=== PATIENT | female | born 1955 | race Caucasian/White ===

== ENCOUNTER 2019-06-09 14:46 | Emergency (ER) | payer OTHER ==
[~2019-06-09] VITALS: Ht 157.5 cm; Wt 127.0 kg
[~2019-06-09 14:46] MED LIST: AMLODIPINE BESYL5 MG PO; BENAZEPRIL-HCT1 EAC2 PO; CITALOPRAM HBR20 MG PO; GLIPIZIDE ER10 MG PO; IBUPROFEN600 MG PO; LEVOTHYROXINE50 MCG PO; METFORMIN HCL500 M1 PO; PANTOPRAZOLE SO40 MG PO; PRAVASTATIN SOD20 MG PO
[2019-06-09] MEDS ORDERED: NORCO 5-325 TA1 EACH PO (16:23)
== END 2019-06-09 16:53 | disposition home or self-care (01) ==
LOC: ED 14:46
DX: S22.31XA Fracture of one rib, right side, initial encounter for closed fracture (principal); I10 Essential (primary) hypertension; E11.9 Type 2 diabetes mellitus without complications; E78.5 Hyperlipidemia, unspecified; F32.9 Major depressive disorder, single episode, unspecified; Z88.7 Allergy status to serum and vaccine; Z79.84 Long term (current) use of oral hypoglycemic drugs; Z79.899 Other long term (current) drug therapy; W22.8XXA Striking against or struck by other objects, initial encounter
CPT/HCPCS: 71101; 96372; 99284-25; J1885

== ENCOUNTER 2020-11-14 20:12 | Emergency (ER) | payer MEDICARE, OTHER ==
[~2020-11-14] VITALS: Ht 157.5 cm; Wt 136.1 kg
[~2020-11-14 20:12] MED LIST changes: +NORCO 5-325 TA1 EACH PO
--- NOTE | 2020-11-15 17:10 | EKG ---
[facility] [address] [facility] [place], [place] [address] Signed Normal sinus rhythm Cannot rule out Anterior infarct , age undetermined Abnormal ECG No previous ECGs available Confirmed by KONSTANTIN RUST DO ([id number]) on 11/15/2020 5:10:07 PM Electronically Signed By: KONSTANTIN RUST DO 11/15/20 1710 PATIENT NAME: MIGUEL ARCHER Electrocardiogram DATE OF : 55 PHYSICIAN: KONSTANTIN RUST DO REPORT #: [id number] REPORT IS CONFIDENTIAL AND NOT TO BE RELEASED WITHOUT AUTHORIZATION
== END 2020-11-14 21:53 | disposition home or self-care (01) ==
LOC: ED 20:12
DX: R06.02 Shortness of breath (principal); F32.9 Major depressive disorder, single episode, unspecified; I10 Essential (primary) hypertension; E78.5 Hyperlipidemia, unspecified; E11.9 Type 2 diabetes mellitus without complications; Z88.7 Allergy status to serum and vaccine
CPT/HCPCS: 71045; 80053; 83880; 84484; 85025; 93005; 93010; 99285-25

== ENCOUNTER 2021-09-13 21:20 | Inpatient (IN) | payer MEDICARE, OTHER ==
[~2021-09-13] VITALS: Ht 157.5 cm; Wt 131.9 kg
--- NOTE | 2021-09-14 01:28 | NUR ---
pt ARRIVES TO [place] VIA STRETCHER. [facility] TO TRANSFER pt TO HOSPITAL BED. FOUR NURSING STAFF AT BEDSIDE. MERIDA IN PLACE, DRAINING DILUTE URINE. pt DENIES SOB. LABORED BREATHING NOTED. 2L OXYGEN BY NC IN PLACE, SPO2 99% WITH CPOX TELE 4. pt DENIES PAIN. ASSISTED TO REPOSITION IN BED. IV SITES FLUSHED WNL, RIGHT FOREARM IV SL, LEFT HAND IV INFUSING MG SULFATE WNL. ASSESSMENT COMPLETE. LUIS CASAREZ AT BEDSIDE FOR ADMISSION. ICE WATER PROVIDED. pt DENIES ADDITIONAL NEEDS. ORIENATION TO ROOM AND CALL LIGHT PROVIDED.
--- NOTE | 2021-09-14 02:13 | NUR ---
pt SLEEPING, AWAKENS TO VOICE FOR IV REMDESIVIR AND PO MEDICATION ADMINISTRATION. IV SITE FLUSHED WNL. pt COUGHING. 2L OXYGEN REMAINS IN PLACE, SPO2 98%. WARM BLANKET PROVIDED ROOM COLD AFTER TEMPERATURE ADJUSTED. TEMPERATURE INCREASED AT THIS TIME. CALL LIGHT IN REACH. NO ADDITIONAL NEEDS. LIGHTS OFF IN ROOM.
--- NOTE | 2021-09-14 04:38 | NUR ---
CHECKED ON pt. RESTING IN BED WITH EYES CLOSED, BREATHING EQUAL AND UNLABORED AT THIS TIME. NO DISTRESS NOTED. SPO2 98% WITH 2L OXYGEN BY NC IN PLACE.
--- NOTE | 2021-09-14 06:33 | NUR ---
pt SLEEPING, AWAKENS TO VOICE WITH RN ENTERING ROOM. VSS. 2L OXYGEN BY NC IN PLACE. pt DENIES SOB. ENCOURAGED TO SIDE LIE. SCOURING TRAIN OPERATOR CHIEF IN ROOM TO DRAW LABS. SCHEDULED THYROID MEDICATION ADMINISTERED. ICE WATER REFILLED. MERIDA EMPTIED, CLEAR YELLOW URINE. CALL LIGHT IN REACH.
[2021-09-14] MEDS ORDERED: VENTOLIN HFA18 GM INH (07:22)
[2021-09-14] MEDS ORDERED: LEVOTHYROXINE50 MCG PO (07:23)
[2021-09-14] MEDS ORDERED: HYDROCHLOROTHIA50 MG PO (07:23)
--- NOTE | 2021-09-14 07:33 | NUR ---
SHIFT REPORT FROM NURSE MEDEL. PT ASLEEP IN BED, NO APPARENT SIGNS OF DISTRESS. SPO2 @ 98%. CALL LIGHT WITHIN REACH.
--- NOTE | 2021-09-14 07:58 | NUR ---
PATIENT IS SITTING UP IN BED. SHE DID NOT NEED ANYTHING AT THIS TIME. CALL LIGHT IN REACH.
--- NOTE | 2021-09-14 08:40 | NUR ---
PT LAYING IN BED. IN ROOM FOR MORNING ASSESSMENT AND MEDS. PT REPORTS FEELING EXHAUSTED STILL. SPO2 98- 100% ON 2L NC; WILL ATTEMPT TO TITRATE. BLE EDEMA 2-3+. UPPER EXTREMITY EDEMA NOTED; RA 2+, LA 1+. YEAST ODOR FROM UNDER PANUS AND GROIN FOLDS. MERIDA CARE PERFORMED. NO FURTHER CARE NEEDS AT THIS TIME. CALL LIGHT WITHIN REACH.
--- NOTE | 2021-09-14 10:45 | NUR ---
Spoke with Renu. She staes she lives in a 1 story home with 3 steps. Daughter and her boyfriend live with her and assist her. Pt states she has difficulty walking due to back and hip pain from arthritis. She uses a transfer board to transfer. Pt plans on dc to home when cleared for dc.
--- NOTE | 2021-09-14 11:56 | NUR ---
IN ROOM FOR EXTENDED TIME; PT GIVEN BED BATH, REPOSITIONED IN BED, FRESH GOWN AND CHUX PLACED ON BED. PT WAS ABLE TO STAND AT BEDSIDE WITH SBA WITH SOME VISIBLE SOB. DR. RUST CAME IN ROOM TO ASSESS PT AND PT WAS ABLE TO PERFORM FULL EXAM WITHOUT O2 AND SPO2 STAYED AT 96-97%. NC CURRENTLY OUT OF NOSE WITH CPOX LEFT ON TO MONITOR SPO2. ALLEVYN APPLIED TO EXCORIATED AREA ON INNER BUTTOCKS. PT IS TALKATIVE AND COOPERATIVE WITH CARE.
--- NOTE | 2021-09-14 12:50 | NUR ---
IN ROOM FOR NEWLY ORDERED MED ADMINISTRATION. PT WOULD LIKE TO SIT AT BEDSIDE. SPO2 94% ON RA. NEW STAT LOCK PLACED HIGHER ON LEG PT C/O PULLING ON MERIDA. LUNCH ARRIVED. CALL LIGHT WITHIN REACH.
--- NOTE | 2021-09-14 14:12 | EKG ---
[facility] [address] [facility] [place], [place] [address] Signed Sinus tachycardia Otherwise normal ECG When compared with ECG of 14-NOV-2020 21:14, No significant change was found Confirmed by KONSTANTIN RUST DO ([id number]) on 09/14/2021 2:12:02 PM Electronically Signed By: KONSTANTIN RUST DO 09/14/21 1412 PATIENT NAME: HUMBERTOPRABHAKARMIGUEL KAY Electrocardiogram DATE OF : 55 PHYSICIAN: KONSTANTIN RUST DO REPORT #: [id number] REPORT IS CONFIDENTIAL AND NOT TO BE RELEASED WITHOUT AUTHORIZATION
--- NOTE | 2021-09-14 14:23 | NUR ---
ON PRECAUTIONS WILL FOLLOW
[2021-09-14] MEDS ORDERED: FUROSEMIDE20 MG PO (14:35)
[2021-09-14] MEDS ORDERED: LISINOPRIL20 MG PO (14:37)
[2021-09-14] MEDS ORDERED: METFORMIN HCL500 MG PO (14:39)
--- NOTE | 2021-09-14 14:40 | NUR ---
MED REC COMPLETED BY PHARMACY
--- NOTE | 2021-09-14 15:41 | NUR ---
CPOX SHOWED SPO2 DROPPED TO 82% ON RA. CHECKED ON PT; PT WAS LAYING RIGHT LATERAL, RESPONDED IMMEDIATELY TO THIS RN VOICE. 1L NC REAPPLIED. PT RESPONDED AND SPO2 IS NOW 98-100%; PT LAYING ON HER BACK AT THIS TIME.
--- NOTE | 2021-09-14 17:45 | NUR ---
PT UP TO BEDSIDE WITH FEET DANGLING FOR DINNER. PT HAD A CBG OF 254 REQURIING 5UNITS SS INSULIN. PT REMAINS ON 1L NC OCCASIONAL DESAT TO 80S; PT BELIEVES THIS MAY BE D/T HER VIJAYA SHE WEARS A CPAP WHEN SHE SLEEPS AT HOME AND THE DESAT OCCURS WHEN SHE "DOZES OFF". PT DENIES PAIN, SOB IMPROVING ALTHOUGH DOES INCREASE WITH EXERTION. PT REMAINS ON CPOX. CALL LIGHT WITHIN REACH.
--- NOTE | 2021-09-14 19:35 | NUR ---
RECEIVED REPORT, PT IS AWAKE IN BED AND STATES SHE NEEDS TO BE CHANGED. WILL HAVE AIDS SOCIAL WORKER CHANGED BEDDING IN A FEW MINUTES. PT DENIES FURTHER NEEDS. CALL LIGHT IS CLOSE.
--- NOTE | 2021-09-14 20:00 | NUR ---
IN TO GET PT A LINEN CHANGE, PT INCONT OF BM, CATH CARE COMPLETE, RN NOW IN RM FOR MEDS, VITALS AND I&Os DONE, FRESH ICE WATER PROVIDED, NO FURTHER NEEDS, POT UP TO THE CHAIR FOR MEDS WITH RN
--- NOTE | 2021-09-14 20:40 | NUR ---
IN ROOM TO ASSESS PT AND ADMINISTER MEDICATIONS. PT DENIES PAIN, SHE DOES HAVE SOB WITH EXERTION.SHE IS ON 1LNC D/T SPOZ DROPPING INTO THE 80"S WHILE SLEEPING EARLIER TODAY. PT NORMALLY WEARS CPAP AT HOME. 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 APPLIED BARRIER CREAM AND ALLYVN TO COCCXY AREA. PT REPORTS EDEMA IS IMPROVING IN BILAT LE'S, THEY ARE STILL VERY TIGH. PT DENIES FURTHER NEEDS AT THIS TIME. CALL LIGHT IS CLOSE.
--- NOTE | 2021-09-14 23:03 | NUR ---
PT IS AWAKE SITTING AT THE EDGE OF THE BED, SHE DENIES NEEDS AT THIS TIME. CALL LIGHT IS CLOSE CPOX READS 94% ON 1LNC HR 89 IN SR.
--- NOTE | 2021-09-15 | NUR ---
ASSISTED PT WITH BSC NEEDS, PT BACK TO BED, ICE WATER AND MENU PROVIDED AT THIS TIME
--- NOTE | 2021-09-15 01:43 | NUR ---
IN ROOM TO CHANGE TELE BATTERY AND CHECK ON PT. SHE DENIES PAIN BUT STATES HER PERIAREA IS SORE. APPLIED BARRIER CREAM. PT ALSO FELT LIKE STATLOCK WAS PULLING ON MERIDA CATH. REMOVED STATLOCK AND REPLACED STATLOCK IN DIFFERENT POSITION TO AVOID PULLING. PT DENIES SOB, EDUCATED PT ON PNA AND COUGHING DEEP BREATHING AND PRONING. PT DENIES FURTHER NEEDS. CALL LIGHT IS CLOSE, PT REMAINS ON CPOX AT 100% AT THIS TIME ON 1LNC WHILE AWAKE.
--- NOTE | 2021-09-15 03:10 | NUR ---
PT IS RESTING WITH EYES CLOSED, RR IS EVEN AND UNLABORED. CPOX READS 98% ON 1LNC. CALL LIGHT IS CLOSE.
--- NOTE | 2021-09-15 04:48 | NUR ---
PT IS RESTING WITH EYES CLOSED, RR IS EVEN AND UNLABORED. CPOX READ 99% ON 1LNC, CALL LIGHT IS CLOSE.
--- NOTE | 2021-09-15 06:32 | NUR ---
IN ROOM TO ADMINISTER THYROID MEDICATION. PT DENIES SOB AT THIS TIME. JUST BEFORE ENTERING ROOM CPOX SHOWED O2 BRIEFLY DROP TO 81%. IT MAY NOT HAVE BEEN A GOOD READING. PT IS SITTING AT EDGE OF BED. PT REPORTS FEELING SOB A FEW TIMES WHEN ROLLING OVER TO SIDE DURING THE NIGHT. PT DENIES NEEDS AT THIS TIME. CALL LIGHT IS CLOSE.
--- NOTE | 2021-09-15 07:10 | NUR ---
REPORT RECIEVED BY MANAGEMENT DEVELOPER RN, PT IN BED RESTING CPOC #4 ON AND FUNCTIONING . ON 1L NC NO NEEDS AT THE MOMENT
--- NOTE | 2021-09-15 08:40 | NUR ---
RN IN ROOM TO DO MORNING ASSESSMENT AND MEDICATIONS, PT SITTING UP IN BED DENIES PAIN, DENIES SOB, ON 1L NC, MERIDA IN PLACE AND INTACT, QUESTIONS ANSWERED
--- NOTE | 2021-09-15 10:46 | NUR ---
RN IN ROOM TO REMOVE MERIDA PT TOLERATED WELL, PT REQUESTING RN TO RE APPLY BARRIER CREAM, ÓSCAR AREA CLEANED AND BARRIER CLEAN APPLIED NO OTHER NEEDS AT THE MOMENT
--- NOTE | 2021-09-15 11:00 | NUR ---
Spoke with pt. She cont. on 02, has difficulty walking, and has a finley in place. Asked if she will need clothes to go home and I let her know her family could drop them and her CPAP off if needed. I let the pt know if fammily can't bring clothing we will get scrubs. Spoke with Dr. Fowler and she states pt does not need CPAP at this time and she will more than likely dc tomorrow. I received a text from pts daughter Lynn, who has worked with me at the hospital. She let me know she also has covid and cannot bring clothing or cpap. UPdated I spoke with the , pt does not need CPAP, we can get her scrubs to go home in.
--- NOTE | 2021-09-15 12:25 | NUR ---
noon blood glucose 197 3 units of insulin provided. sitting up at the edge of the bed eating denies any other needs
--- NOTE | 2021-09-15 13:12 | NUR ---
PT STILL UNDER PRECAUTIONS, WILL FOLLOW NEEDED
--- NOTE | 2021-09-15 15:14 | NUR ---
RN IN ROOM ROUDING ON PT, PT RESTING IN BED , ABLE TO VOID AFTER CATHETER REMOVAL, DENIES ANY NEEDS AT THE MOMENT
--- NOTE | 2021-09-15 17:14 | NUR ---
PT BLOOD GLUCOSE 137, NO INSULIN GIVEN, DINNER TRAY PROVIDED
--- NOTE | 2021-09-15 18:15 | NUR ---
RN IN ROOM TO HELP PT BACK INTO BED FROM BSC, NEW MEPILEX APPLIED TO COCCXY, BARRIER CREAM APPLIED TO ÓSCAR AREA.
--- NOTE | 2021-09-15 19:27 | NUR ---
SHIFT REPORT RECEIVED FROM GOKUL SMITH. PT RESTING IN BED, ON PHONE. SPO2 95% ON 1L NC. NO NEEDS AT THIS TIME. CALL LIGHT IN REACH.
--- NOTE | 2021-09-15 19:56 | NUR ---
PT CALLS FOR ÓSCAR CARE AND ASSIST BACK TO BED, PROVIDED. ASSESSMENT COMPLETED. GCS 15, A&O X4. LUNGS DIM IN RIGHT LOWER AND MID LOBE, CLEAR IN ALL OTHER LOBES. ABD SOFT, NONTENDER, BOWEL TONES ACTIVE, OBESE. PT HAS GENERALIZED EDEMA IN ALL EXRETMITIES AND STATES SHE HAS EDEMA IN ABD AND SIDES. IV WNL, FLUSHED WELL. ALLEVYN ON COCCYX. NC @ 1L, SPO2 96. PT HAS SOB WITH ACTIVITY BUT RECOVERS QUICKLY. NO OTHER NEEDS AT THIS TIME. CALL LIGHT IN REACH.
--- NOTE | 2021-09-15 20:38 | NUR ---
VS AND I&O COMPLETED. SCHEDULED MEDS PROVIDED. ICE WATER PROVIDED. NO OTHER NEEDS. CALL LIGHTIN REACH.
--- NOTE | 2021-09-15 21:30 | NUR ---
IN TO ASSIST PT OFF THE BSC, WARM BLANKET PROVIDED, NO FURTHER NEEDS
--- NOTE | 2021-09-15 23:21 | NUR ---
PT ASSISTED OFF THE COMMADE, BACK TO BED
--- NOTE | 2021-09-16 00:56 | NUR ---
IN TO ASSIST PT WITH ÓSCAR CARE AFTER BCS, BACK TO BED, NO FURTHER NEEDS
--- NOTE | 2021-09-16 02:04 | NUR ---
PT RESTING IN BED. SPO2 100% ON 1L NC. CALL LIGHT IN REACH.
--- NOTE | 2021-09-16 02:35 | NUR ---
PT ASSISTED TO BED FROM BSC. SPO2 100% ON 1L NC. O2 TITRATED TO RA, SPO2 94%. ASSESSMENT COMPLETED. LUNGS CLEAR IN LEFT LOBES AND RIGHT UPPER LOBE, DIM IN RIGHT MID AND LOWER LOBES. GENREALIZED EDEMA IN BOTH UPPER EXTREMITIES AND ABD, 2+ BLE. ABRASION NOTED TO OUTER LEFT FA, BILINGUAL ADMINISTRATIVE ASSISTANT. IVs WNL. NO OTHER NEEDS. CALL LIGHT IN REACH.
--- NOTE | 2021-09-16 03:24 | NUR ---
IN TO ASSIST PT WITH ÓSCAR CARE AFTER USING THE BSC, NO FURTHER NEEDS
--- NOTE | 2021-09-16 04:30 | NUR ---
IN TO ASSIST PT WITH ÓSCAR CARE, VITALS DONE, NO FURTHER NEEDS
--- NOTE | 2021-09-16 05:16 | NUR ---
SCHEDULED MED PROVIDED. PT UP TO BSC AND BACK TO BED. NO OTHER NEEDS. CALL LIGHT IN REACH.
--- NOTE | 2021-09-16 06:20 | NUR ---
IN TO GET PT OFF THE BSC
--- NOTE | 2021-09-16 07:35 | NUR ---
report recieved from site auditor RN pt sleeping in bed currently on room air cpoc 96% call light within reach no needs at the moment
--- NOTE | 2021-09-16 08:40 | NUR ---
RN IN ROOM TO DO MORNING MEDS AND ASSESSMENT. DENIES ANY NEEDS AT THE MOMENT ON ROOM AIR DENIES SOB OR PAIN.
[2021-09-16] MEDS ORDERED: LOSARTAN POTASS50 MG PO (09:24)
[2021-09-16] MEDS ORDERED: POTASSIUM CHLO10 MEQ PO (09:27)
[2021-09-16] MEDS ORDERED: FUROSEMIDE20 MG PO (09:28)
== END 2021-09-16 13:18 | disposition home or self-care (01) | DRG 177 ==
LOC: ED 21:20 → MS 21:22
PROVIDERS: ADMIT Student in an Organized Health Care Education/Training Program; ATTEND Student in an Organized Health Care Education/Training Program
PROC: 8E0ZXY6 Isolation (ICD-10-PCS; principal; 2021-09-14)
PROC: XW033E5 Introduction of Remdesivir Anti-infective into Peripheral Vein, Percutaneous Approach, New Technology Group 5 (ICD-10-PCS; 2021-09-14)
PROC: 3E0DX3Z Introduction of Anti-inflammatory into Mouth and Pharynx, External Approach (ICD-10-PCS; 2021-09-14)
DX: U07.1 COVID-19 (principal); J12.82 Pneumonia due to coronavirus disease 2019; J96.01 Acute respiratory failure with hypoxia; I50.31 Acute diastolic (congestive) heart failure; I11.0 Hypertensive heart disease with heart failure; F32.A Depression, unspecified; E78.5 Hyperlipidemia, unspecified; E11.9 Type 2 diabetes mellitus without complications; Z98.890 Other specified postprocedural states; Z90.710 Acquired absence of both cervix and uterus; D64.9 Anemia, unspecified; E03.9 Hypothyroidism, unspecified; Z79.899 Other long term (current) drug therapy
CPT/HCPCS: 71045; 80048; 80076; 81001; 83605; 83735; 83880; 84484; 85025; 87040; 93005; 93010; 94760; 94762; 96372; A9270; C9803; G0378; J0456; J0696; J1650; J1815; J1940; J3475; J7050; J7060; U0003

== ENCOUNTER 2022-10-01 10:01 | Inpatient (IN) | payer MEDICARE, OTHER ==
[~2022-10-01] VITALS: Ht 157.5 cm; Wt 122.6 kg
[~2022-10-01 10:01] MED LIST changes: +FUROSEMIDE20 MG PO; +HYDROCHLOROTHIA50 MG PO; +LISINOPRIL20 MG PO; +LOSARTAN POTASS50 MG PO; +METFORMIN HCL500 MG PO; +POTASSIUM CHLO10 MEQ PO; +VENTOLIN HFA18 GM INH
[2022-10-01] MEDS ORDERED: ALLOPURINOL100 MG PO (10:59)
[2022-10-01] MEDS ORDERED: VITAMIN D350 MC3 PO (11:00)
[2022-10-01] MEDS ORDERED: VITAMIN B122500 MCG PO (11:01)
[2022-10-01] MEDS ORDERED: LEVOTHYROXINE125 MCG PO (11:02)
[2022-10-01] MEDS ORDERED: CITRACAL + D E1 EACH PO (11:03)
[2022-10-01] MEDS ORDERED: MAGNESIUM250 M1 PO (11:28)
[2022-10-01] MEDS ORDERED: HYDROCHLOROTHIA25 MG PO (12:47)
[2022-10-01] MEDS ORDERED: CRESTOR10 MG PO (12:50)
[2022-10-01] MEDS ORDERED: TORSEMIDE20 MG PO (12:50)
[2022-10-01] MEDS ORDERED: FAMOTIDINE10 MG PO (12:51)
[2022-10-01] MEDS ORDERED: ACTOS15 MG PO (12:51)
--- NOTE | 2022-10-01 13:14 | NUR ---
66 YEAR OLD FEMALE PATEINT ADMITTED TO CCU UNDER DR. CARTWRIGHT WITH DX OF HYPONATREMIA. ADMITTING NA 119. PATIENT HAS BEEN HAVING INCREASED S/S OF BRAIN FEELING FOGGY OVER THE PAST WEEK HAS HX OF CIRRHOSIS. HAS CT OF LIVER ON Aug. IS AWAKE AND ALERT ON ADMIT. ADMISSION PROCESS STARTED.
[2022-10-01] MEDS ORDERED: CELECOXIB100 MG PO (13:43)
[2022-10-01] MEDS ORDERED: LOSARTAN POTASS50 MG PO (13:45)
[2022-10-01] MEDS ORDERED: POTASSIUM CHLO10 ME2 PO (13:45)
[2022-10-01] MEDS ORDERED: HYDROCHLOROTHIA50 MG PO (13:46)
[2022-10-01] MEDS ORDERED: METFORMIN HCL750 MG PO (13:46)
--- NOTE | 2022-10-01 16:00 | EKG ---
[facility] [address] [facility] [place] [address] Signed Sinus rhythm with 1st degree AV block Nonspecific ST abnormality Prolonged QT Abnormal ECG When compared with ECG of 13-SEP-2021 21:32, WA interval has increased Vent. rate has decreased BY 42 BPM QRS duration has increased Confirmed by KHADAR CARTWRIGHT MD ([id number]) on 10/01/2022 3:59:52 PM Electronically Signed By: KHADAR CARTWRIGHT MD 10/01/22 1600 PATIENT NAME: MIGUEL ARCHER Electrocardiogram DATE OF : 55 PHYSICIAN: KHADAR CARTWRIGHT MD REPORT #: [id number] REPORT IS CONFIDENTIAL AND NOT TO BE RELEASED WITHOUT AUTHORIZATION
--- NOTE | 2022-10-01 16:00 | EKG ---
[facility] [address] [facility] [place] [address] Signed Normal sinus rhythm Nonspecific ST abnormality Prolonged QT Abnormal ECG When compared with ECG of 01-OCT-2022 10:34, (Unconfirmed) No significant change was found Confirmed by KHADAR CARTWRIGHT MD ([id number]) on 10/01/2022 3:59:58 PM Electronically Signed By: KHADAR CARTWRIGHT MD 10/01/22 1600 PATIENT NAME: SUZIMIGUEL ANDREW Electrocardiogram DATE OF : 55 PHYSICIAN: KHADAR CARTWRIGHT MD REPORT #: [id number] REPORT IS CONFIDENTIAL AND NOT TO BE RELEASED WITHOUT AUTHORIZATION
--- NOTE | 2022-10-01 16:09 | NUR ---
PATIENT LYING IN BED. VITALS COMPLETED. CALL LIGHT WITHIN REACH.
--- NOTE | 2022-10-01 16:32 | NUR ---
MED REC COMPLETE
--- NOTE | 2022-10-01 16:55 | NUR ---
Patient up tp commode and onto couch with SBA. Voided 150cc, call light withinr reach.
--- NOTE | 2022-10-01 18:00 | NUR ---
TOOK DINNER FAIR. STATES SHE IS FEELING A LITTLE BETTER. BRAIN NOT FOGGY. LABS DRAWN.
--- NOTE | 2022-10-01 18:30 | NUR ---
DR. CARTWRIGHT UP DATED ON LABS.
--- NOTE | 2022-10-01 19:04 | NUR ---
IVF CHANGED TO NS W/O KCL AT 75 ML/HR. PATIENT IS RESTING IN BED NOW. PATIENT IS AWARE SHE WILL HAVE LAB DRAW AT MIDNIGHT. REPORT TO NEXT SHIFT.
--- NOTE | 2022-10-01 19:45 | NUR ---
PT ASSESSED, FOUND TO BE RESTING COMFORTABLY IN BED. PT IS A&O X 4 WITH A GCS OF 15. PT WITH NO COMPALINTS AT THIS TIME. SAFTEY CHECK PERFORMED, MONITOR ALARM LIMITS SET AND CALL LIGHT PLACED AT BEDSIDE. DR. CARTWRIGHT CONSULTED REGARDING CONTINUED HYPONATREMIA AND CONCERN FOR UTI EVIDENCE BY UA. NO NEW ORDERS OBTAINED.
--- NOTE | 2022-10-02 00:48 | NUR ---
DR. CARTWRIGHT CALLED WITH UPDATED NA LEVEL OF 121. NO NEW ORDERS OBTAINED.
--- NOTE | 2022-10-02 07:30 | NUR ---
REPORT RECIEVED. PATIENT IS SLEEPING ON CPAP. IVF INFUSING AT 75 ML/HR. .
--- NOTE | 2022-10-02 08:12 | NUR ---
ASSESSMENT COMPLETE. UP TO BR TO VOID THEN TO COUCH FOR BREAKFAST.
--- NOTE | 2022-10-02 11:20 | NUR ---
DR. CARTWRIGHT HERE TO SEE PATIENT. PATIENT DENIES NEED FOR PAIN MEDICATION.
--- NOTE | 2022-10-02 11:28 | NUR ---
INTO SEE PATIENT DR. CARTWRIGHT AND MARSHAL RN AT BEDSIDE. PATIENT STATES HE LIVE AT HOME WITH HER DAUGHTER CARLOS ALBERTO. CARLOS ALBERTO WORKS REMOTELY FROM HOME AND WILL BE AVAILABLE TO ASSIST THE PATIENT AT DISCHARGE. THE PATIENT LIVES IN A 1 STORY HOME WITH 3 STEPS IN. PATIENT STATES SHE HAS A WALKER THAT SHE USES FOR LONG DISTANCES SHE TIRES EASILY. PATIENT ALSO WEARS A CPAP. NO DISCHARGE NEEDS THAT THE PATIENT IS AWARE OF AT THIS TIME. SHE HAS RECENTLY ESTABLISHED WITH DR. SALAS WHEN HER PREVIOUS PROVIDER LEFT THE AREA. DEMOGRAPHIC INFORMATION CONFIRMED. WILL CONTINUE TO CHECK IN WITH PATIENT DURING HER VISIT.
--- NOTE | 2022-10-02 12:00 | NUR ---
ASSESSMENT DONE. STATES SHE IS FEEING BETTER. DENIES PAIN. 3% NS INFUSING. PATIENT IS SITTING UP ON COUGH FOR LUNCH. HUMALOG INSULIN 5 UNITS SQ GIVEN FOR ACCUCHECK OF 257.
--- NOTE | 2022-10-02 14:00 | NUR ---
CONTINUES TO SIT UP ON COUCH. DENIES NEED FOR PAIN MEDICATION. 3% NS INFUSING.
--- NOTE | 2022-10-02 15:00 | NUR ---
NAPPING IN BED WITH CPAP ON.
--- NOTE | 2022-10-02 18:14 | NUR ---
SITTING UP TO EAT DINNER. BLOOD DRAWN.
--- NOTE | 2022-10-02 18:40 | NUR ---
DR. CARTWRIGHT UPDATED ON LABS, ORDERS RECIEVED. IVF DECREASED TO 20 ML/HR.
--- NOTE | 2022-10-02 19:32 | NUR ---
DAUGHTER IS IN THE ROOM VISITING WITH PATIENT. REPORT TO NEXT SHIFT.
--- NOTE | 2022-10-02 20:00 | NUR ---
PT ASSESSED, FOUND TO BE SITTING ON COUCH AWAKE AND ORIENTED WITH A GCS OF 15. DAUGHTER PRESENT, PT DOES NOT APPEAR TO BE IN ANY DISTRESS, AND DENIES ANY PAIN AT THIS TIME. PT MOVES ALL FOUR EXTREMITIES, AND FOLLOWS COMMANDS APPROPRIATELY. SAFETY CHECK PERFORMED, ALARM LIMITS SET AND NURSE CALL LIGHT WITH PATIENT. PT IS NOW ON 3% NA GTT. SERIAL SODIUM LEVELS DISCONTINUED. URINE NOTED TO HAVE + NITRITE, WBC AND BACTERIA PRESENT. DR. CARTWRIGHT CONSULTED REGARDING CONCERN FOR ODS AND NEED FOR SERIAL SODIUM LEVEL. WELL, DISCUSSED CONCERN FOR POSSIBLE UTI AND REQUEST TO STRAIGHT CATH PATIENT FOR ANOTHER UA. DR. CARTWRIGHT INFORMS THAT SERIAL SODIUM LABS AND ANOTHER UA "ARE NOT NECCESSARY AT THIS TIME." NO FURTHER ORDERS OBTAINED
--- NOTE | 2022-10-03 07:18 | NUR ---
PT REMAINS ALERT AND ORIENTED X 4 WITH A GCS OF 15. PT HAS BEEN IN A NSR, NORMOTENSIVE AND A-FEBRILE. PT MOVES ALL FOUR EXTREMITIES WITH PURPOSE, CMS INTACT X 4. PT HAS BEEN IN A NSR, NORMOTENSIVE AND A-FEBRILE THROUGHOUT THE SHIFT. SODIUM 3% OFF AT 0500 PER MD ORDERS. NA NOTED AT 126. DR. CARTWRIGHT CONSULTED AND ADVISED WILL CONTINUE TO MONITOR PATIENT AT THIS TIME. NO FURTHER ACTIONS NOTED.
--- NOTE | 2022-10-03 07:30 | NUR ---
REPORT RECIEVED. PATEINT IS SITTING UP ON COUCH. NO DISTRESS NOTED.
--- NOTE | 2022-10-03 08:30 | NUR ---
TOOK BREAKFAST FAIR. DENIES PAIN. ASSESSMENT DONE. ROUTINE PO MEDICATIONS GIVEN. CONTINUES TO SIT ON COUGH. TALKATIVE AND IS IN GOOD SPIRITS.
--- NOTE | 2022-10-03 12:00 | NUR ---
PATIENT SITTING UP ON COUCH FOR BREAKFAST. WILL AMBULATE TO [facility] FOR SHOWER THIS AFTERNOON. CALL LIGHT IN EASY REACH
--- NOTE | 2022-10-03 12:00 | NUR ---
ASSESSMENT UNCHANGED. SITTING UP ON COUCH EATING LUNCH. IS W/O C/O. WILL BE TRANSFERRED TO MED-SURG THIS AFTERNOON.
--- NOTE | 2022-10-03 12:33 | NUR ---
PT SITTING ON COUCH, LEANING ON TABLE WRAPPED IN BLANKETS. PT IS PLEASANT, HAD GOOD VISIT. PT STATED SHE HAS EXPERIENCED THIS BEFORE. PT IS ANXIOUS TO VISIT WITH DR CARTWRIGHT AND DEVELOP POC. PT STATED SHE IS FEELING BETTER, GAVE G.POST, BLESSING AND WILL FOLLOW
--- NOTE | 2022-10-03 13:00 | NUR ---
NS 3% HUNG AT 40 ML/HR. PATEINT WILL BE TRANSFERRED TO MED-SURG. PATIENT DENIES PAIN.
--- NOTE | 2022-10-03 13:10 | NUR ---
spoke with Renu. She states she lives in a house in [place]. She has hand rails. NO issues getting in or out of the home. She lives alone. She uses a CPAP and is changing to a BIpap. She has a shower chair. Pt would like a walker with a seat. States she is having neuropathy in her feet. She has pins and needles which is progressively getting worse. Let her know I will update Dr. Lucia. She also requests of potassium Chloride is ordered they are 2-10 mg tables as she cannot swallow the large 20 mg tabs. I asked if she breaks in half and she states she cannot swallow. Dr. Lucia updated.
--- NOTE | 2022-10-03 13:45 | NUR ---
REPORT TO MED-SURG.
--- NOTE | 2022-10-03 14:20 | NUR ---
TO MED-SURG VIA CHAIR.
--- NOTE | 2022-10-03 14:41 | NUR ---
REPORT RECEIVED FROM CCU RN. PT TRANSFERS TO TO MED-SURG SITTING UP ON COUCH DOING A PUZZLE. ORIENTED TO ROOM AND ROUTINE DENIES [place]. PT TO SHOWER AT THIS TIME STAFF SBA
--- NOTE | 2022-10-03 14:45 | NUR ---
THIS CITY CARRIER IN TO ASSIST PATIENT WITH SHOWER. PATIENT IS VERY RED AND PAINFUL IN GROIN AND PANNUS AREA. RN AWARE. PATIENT NOW SITTING ON COUCH IN ROOM, WARM BLANKET PROVIDED. CALL LIGHT IN EASY REACH.
--- NOTE | 2022-10-03 16:13 | NUR ---
PT MEETING WITH SUPPLY CHAIN SPECIALIST AT THIS TIME.
--- NOTE | 2022-10-03 17:42 | NUR ---
PT REMAINS SITTING ON THE COUCH THIS EVENING. TOLERATES 100% OF HER MEAL DENIES NEED OF ANYTHING FURTHER. ENCOURAGED TO CALL FOR SBA TO MOVE AROUND THE ROOM.
--- NOTE | 2022-10-03 18:44 | NUR ---
PT USED CALL LIGHT FOR ASSISTANCE IN ÓSCAR CARE AFTER THE RESTROOM. I ASSISTED PT IN CLEANING, DOCUMENTED OUTPUT. SHE ASKED TO GO FOR A WALK IN THE [place]. SHE WAS A STBY, STEADY ON HER FEET. SHE AMBULATED X1 DOWN THE UNIT [place]. SHE BECAME WINDED BY THE END OF THE WALK SO SHE SAT ON THE BENCH IN HER ROOM. PT IS COMFORTABLE, TABLE/BELONGINGS/CALL LIGHT IN REACH.
--- NOTE | 2022-10-03 19:00 | NUR ---
BEDSIDE HANDOFF REPORT RECEIVED FROM DAY SHIFT RN. PT SITTING ON COUCH. PT DENIES NEEDS AT THIS TIME.
--- NOTE | 2022-10-03 19:51 | NUR ---
CALL LIGHT ANSWERED. pt SITTING ON COUCH, REQUESTED TEMPERATURE TURNED UP IN ROOM. THERMOSTAT ADJUSTED, WARM BLANKETS PROVIDED. DENIES ASSISTANCE TO BED. IVF INFUSING WNL. CALL LIGHT IN REACH.
--- NOTE | 2022-10-03 20:30 | NUR ---
PT SITTING ON COUCH, TALKING TO DAUGHTER. PT ON ROOM AIR, LUNG SOUNDS CLEAR, DENIES SOB. DENIES PAIN. BOWEL TONES ACTIVE, DENIES NAUSEA. PT WITH CHRONIC NEUROPATHY IN FEET AND FINGERTIPS, BLE WITH GENERALIZED NON PITTING EDEMA, PULSES FAINT, CAP REFILL 1 SECOND. IV FLUIDS STOPPPED PER ORDER. PT DENIES OTHER NEEDS AT THIS TIME.
--- NOTE | 2022-10-03 21:45 | NUR ---
LAB OBTAINED BY LUIS WHITE. PT BLOOD GLUCOSE 256, GIVEN 5 UNITS SS INSULIN. PT ASKING ABOUT INSULIN, PT STATES SHE HAS NEVER HAD TO TAKE INSULIN AT HOME. PT EDUCATED ON INSULIN, TYPES OF INSULIN AND ADMINISTRATION.
--- NOTE | 2022-10-03 22:04 | NUR ---
DR. CARTWRIGHT RETURNED CALL, CORRECTED SODIUM 134, ORDER FOR NO FURTHER IV THERAPY, PT LIKELY TO DC HOME TOMORROW. PT UPDATED ON PLAN OF CARE FOR TONIGHT AND TOMORROW. PT DENIES OTHER NEEDS AT THIS TIME.
--- NOTE | 2022-10-03 22:52 | NUR ---
ANSWERED CALL LIGHT. PATIENT MOVED FROM COUCH TO BED INDEPENDENTLY. WARM BLANKET PROVIDED. HOME CPAP ON. NO OTHER NEEDS AT THIS TIME.
--- NOTE | 2022-10-04 06:03 | NUR ---
MORNING ASSESSMENT COMPLETED, NO ACUTE CHANGES. PT GIVEN LEVOTHYROXINE PER EMAR. PT AMBULATED TO BATHROOM AND VOIDED. PT DENIES OTHER NEEDS AT THIS TIME.
--- NOTE | 2022-10-04 07:15 | NUR ---
PT RESTING IN BED. PT PROVIDED WARM WASH CLOTH AND ICE WATER. PT STATED SHE WILL INDEP GET UP TO COUCH. NO FURTHER NEEDS. CALL LIGHT WITHIN REACH
--- NOTE | 2022-10-04 07:30 | NUR ---
RECIEVED SHIFT REPORT. PT RESTING IN BED, AWAKE. CALL LIGHT WITHIN REACH. DENIES FURTHER NEEDS
--- NOTE | 2022-10-04 09:25 | NUR ---
PT ON COUCH. VITALS AND IS AND OS COMPLETE. PT DECLINED RESTROOM NEEDS SHE GOES INDEP. NO NEEDS AT THIS TIME. CALL LIGHT WITHIN REACH
--- NOTE | 2022-10-04 09:47 | NUR ---
MORNING ASSESSMENT COMPLETE. PT DENIES PAIN. CALL LIGHT WITHIN REACH. DENIES FURTHER NEEDS.
--- NOTE | 2022-10-04 09:59 | NUR ---
PATIENT HOPING TO GO HOME TODAY.PATIENT IS REQUESTING ADVANCE DIRECTIVE AND POLST FORMS. HAND-OUTS GIVEN TO PATIENT. PATIENT WILL REVIEW HAND-OUTS. PATIENT IS ALSO REQUESTING A WALKER WITH A SEAT. WAS UPDATED BY [facility] ABOUT THIS REQUEST.
[2022-10-04] MEDS ORDERED: GLIPIZIDE XL2.5 MG PO (10:09)
--- NOTE | 2022-10-04 11:08 | NUR ---
RX SENT TO [facility] FOR A 4 WHEELED WALKER WITH A SEAT.[facility] CAN BRING THE WALKER TO [facility] TOMORROW. PATIENT UPDATED ON PLAN.
--- NOTE | 2022-10-04 11:17 | NUR ---
PATIENT SITTING ON COUCH DOING CROSSWORD PUZZLES. I BROUGHT HER A SAMPLE DIABETES LOW SODIUM MENU FOR HOME. I ALSO BROUGHT HER A NON-STARCHY VEGGIE LIST AND A PICTURE OF A DIABETES-FRIENDLY PLATE FOR HER TO TAKE HOME. SHE STATES "THANK YOU FOR ALL OF THIS INFO. IF I HAVE ANY QUESTIONS CAN ME OR MY DAUGHTER CALL YOU?" I SAID YES, CALL ANYTIME. MY CARD IS IN THE FOLDER. SHE EXPECTS TO GO HOME TODAY.
--- NOTE | 2022-10-04 12:45 | NUR ---
PT ALERT, ORIENTED SITTING ON COUCH USING THE PHONE. PT IS PREPARING TO DC TODAY. SAID SHE IS FEELING WELL, THANKED ME FOR CHECKING. GAVE BLESSING.
== END 2022-10-04 11:58 | disposition home or self-care (01) | DRG 641 ==
LOC: ED 10:01 → CCU 12:29 → MS 10-03 14:37
PROVIDERS: ADMIT Internal Medicine; ATTEND Internal Medicine
DX: E87.1 Hypo-osmolality and hyponatremia (principal); D61.818 Other pancytopenia; I13.0 Hypertensive heart and chronic kidney disease with heart failure and stage 1 through stage 4 chronic kidney disease, or unspecified chronic kidney disease; Z68.43 Body mass index [BMI] 50.0-59.9, adult; Z20.822 Contact with and (suspected) exposure to COVID-19; T50.1X5A Adverse effect of loop [high-ceiling] diuretics, initial encounter; T50.2X5A Adverse effect of carbonic-anhydrase inhibitors, benzothiadiazides and other diuretics, initial encounter; E87.6 Hypokalemia; E11.21 Type 2 diabetes mellitus with diabetic nephropathy; E11.65 Type 2 diabetes mellitus with hyperglycemia; I35.0 Nonrheumatic aortic (valve) stenosis; E11.22 Type 2 diabetes mellitus with diabetic chronic kidney disease; N18.32 Chronic kidney disease, stage 3b; E03.9 Hypothyroidism, unspecified; F32.A Depression, unspecified; E78.5 Hyperlipidemia, unspecified; R77.8 Other specified abnormalities of plasma proteins; I50.9 Heart failure, unspecified; H35.30 Unspecified macular degeneration; E79.0 Hyperuricemia without signs of inflammatory arthritis and tophaceous disease; K74.60 Unspecified cirrhosis of liver; D73.1 Hypersplenism; M15.9 Polyosteoarthritis, unspecified; E66.01 Morbid (severe) obesity due to excess calories; E86.1 Hypovolemia; Z90.710 Acquired absence of both cervix and uterus; Z98.891 History of uterine scar from previous surgery; Z88.7 Allergy status to serum and vaccine; Z79.890 Hormone replacement therapy; Z79.899 Other long term (current) drug therapy
CPT/HCPCS: 36415; 71045; 80048; 80053; 81001; 82140; 83036; 83690; 83735; 83880; 83930; 83935; 84300; 84484; 84550; 85025; 85060; 87088; 93005; 93010; A9270; C9803; J1815; J3480; J7030; J7131; U0003

== ENCOUNTER 2023-04-05 11:36 | Emergency (ER) | payer MEDICARE, OTHER ==
[~2023-04-05] VITALS: Ht 157.5 cm; Wt 136.4 kg
--- OUTSIDE RECORDS SUMMARY | ~2023-04-05 | XMS | Continuity of Care Document ---
Demographics + + + | Address | [address] | | | [place] [address] | + + + | Preferred Language | Unknown | + + + | Marital Status | Never | + + + | Sabianist Affiliation | Unknown | + + + | Race | White | + + + | Ethnic Group | Not or | + + + Author + + + | Author | [facility] | + + + | Organization | [facility] | + + + | Address | [address] | | | [place] [address] | + + + | Phone | | + + + Care Team Providers + + + + | Care General Cleaner Name | Role | Phone | + + + + Unavailable | Unavailable | + + + + Unavailable | Unavailable | + + + + Unavailable | Unavailable | + + + + Unavailable | Unavailable | + + + + Unavailable | Unavailable | + + + + Allergies and Intolerances + + + + + + | date | description | facility | reaction | severity | + + + + + + | (no date) | Tetanus | [facility] | (no reaction) | (no severity) | | | Vaccines and | | | | | | Toxoid | | | | + + + + + + Encounters No information. Functional Status No information. Immunizations No information. Medications + + + + | date | description | facility | + + + + | 2022-10-10 00:00 | CYANOCOBALAMIN (VITAMIN | [facility] | | | B-12) | | + + + + | 2023-04-03 00:00 | CYANOCOBALAMIN (VITAMIN | [facility] | | | B-12) | | + + + + | 2022-10-10 00:00 | ALLOPURINOL | [facility] | + + + + | 2023-04-03 00:00 | ALLOPURINOL | [facility] | + + + + | 2022-07-11 00:00 | AMLODIPINE BESYLATE | [facility] | + + + + | 2022-10-10 00:00 | AMLODIPINE BESYLATE | [facility] | + + + + | 2023-04-03 00:00 | AMLODIPINE BESYLATE | [facility] | + + + + | 2023-04-03 00:00 | CEPHALEXIN | [facility] | + + + + | 2022-07-11 00:00 | HYDROCHLOROTHIAZIDE | [facility] | + + + + | 2022-10-10 00:00 | HYDROCHLOROTHIAZIDE | [facility] | + + + + | 2023-04-03 00:00 | HYDROCHLOROTHIAZIDE | [facility] | + + + + | 2016-05-07 00:00 | IBUPROFEN | [facility] | + + + + | 2016-05-07 00:00 | IBUPROFEN | [facility] | + + + + | 2016-05-07 00:00 | IBUPROFEN | [facility] | + + + + | 2022-10-10 00:00 | TORSEMIDE | [facility] | + + + + | 2023-04-03 00:00 | TORSEMIDE | [facility] | + + + + | 2022-07-11 00:00 | CITALOPRAM HYDROBROMIDE | [facility] | + + + + | 2022-10-10 00:00 | CITALOPRAM HYDROBROMIDE | [facility] | + + + + | 2023-04-03 00:00 | CITALOPRAM HYDROBROMIDE | [facility] | + + + + | 2022-10-10 00:00 | PIOGLITAZONE HCL | [facility] | + + + + | 2023-04-03 00:00 | PIOGLITAZONE HCL | [facility] | + + + + | 2021-09-16 00:00 | FUROSEMIDE | [facility] | + + + + | 2022-07-11 00:00 | FUROSEMIDE | [facility] | + + + + | 2022-10-10 00:00 | FUROSEMIDE | [facility] | + + + + | 2023-04-03 00:00 | FUROSEMIDE | [facility] | + + + + | 2022-10-04 00:00 | GLIPIZIDE | [facility] | + + + + | 2022-10-04 00:00 | GLIPIZIDE | [facility] | + + + + | 2021-09-16 00:00 | POTASSIUM CHLORIDE | [facility] | + + + + | 2022-07-11 00:00 | LISINOPRIL | [facility] | + + + + | 2022-10-10 00:00 | LISINOPRIL | [facility] | + + + + | 2023-04-03 00:00 | LISINOPRIL | [facility] | + + + + | 2016-05-07 00:00 | PANTOPRAZOLE SODIUM | [facility] | + + + + | 2016-05-07 00:00 | PANTOPRAZOLE SODIUM | [facility] | + + + + | 2016-05-07 00:00 | PANTOPRAZOLE SODIUM | [facility] | + + + + | 2022-07-11 00:00 | GLIPIZIDE | [facility] | + + + + | 2022-10-10 00:00 | GLIPIZIDE | [facility] | + + + + | 2023-04-03 00:00 | GLIPIZIDE | [facility] | + + + + | 2022-10-10 00:00 | Cholecalciferol (Vitamin | [facility] | | | D3) | | + + + + | 2023-04-03 00:00 | Cholecalciferol (Vitamin | [facility] | | | D3) | | + + + + | 2019-06-09 00:00 | HYDROCODONE | [facility] | | | BIT/ACETAMINOPHEN | | + + + + | 2019-06-09 00:00 | HYDROCODONE | [facility] | | | BIT/ACETAMINOPHEN | | + + + + | 2019-06-09 00:00 | HYDROCODONE | [facility] | | | BIT/ACETAMINOPHEN | | + + + + | 2022-07-11 00:00 | ALBUTEROL SULFATE | [facility] | + + + + | 2022-10-10 00:00 | ALBUTEROL SULFATE | [facility] | + + + + | 2023-04-03 00:00 | ALBUTEROL SULFATE | [facility] | + + + + | 2022-10-10 00:00 | ROSUVASTATIN CALCIUM | [facility] | + + + + | 2023-04-03 00:00 | ROSUVASTATIN CALCIUM | [facility] | + + + + | 2022-07-11 00:00 | METFORMIN HCL | [facility] | + + + + | 2022-10-10 00:00 | METFORMIN HCL | [facility] | + + + + | 2023-04-03 00:00 | METFORMIN HCL | [facility] | + + + + | 2022-07-11 00:00 | METFORMIN HCL | [facility] | + + + + | 2022-07-11 00:00 | | [facility] | | | BENAZEPRIL/HYDROCHLOROTHIAZ | | | | JOCELINE | | + + + + | 2022-10-10 00:00 | | [facility] | | | BENAZEPRIL/HYDROCHLOROTHIAZ | | | | JOCELINE | | + + + + | 2023-04-03 00:00 | | [facility] | | | BENAZEPRIL/HYDROCHLOROTHIAZ | | | | JOCELINE | | + + + + | 2022-07-11 00:00 | PRAVASTATIN SODIUM | [facility] | + + + + | 2022-10-10 00:00 | PRAVASTATIN SODIUM | [facility] | + + + + | 2023-04-03 00:00 | PRAVASTATIN SODIUM | [facility] | + + + + | 2022-07-11 00:00 | LEVOTHYROXINE SODIUM | [facility] | + + + + | 2022-10-10 00:00 | LEVOTHYROXINE SODIUM | [facility] | + + + + | 2023-04-03 00:00 | LEVOTHYROXINE SODIUM | [facility] | + + + + | 2022-10-10 00:00 | LEVOTHYROXINE SODIUM | [facility] | + + + + | 2023-04-03 00:00 | LEVOTHYROXINE SODIUM | [facility] | + + + + | 2021-09-16 00:00 | LOSARTAN POTASSIUM | [facility] | + + + + Problems + + + + | date | description | facility | + + + + | 2016-05-06 00:00 | Musculoskeletal chest pain | [facility] | | | | | + + + + | 2016-05-06 00:00 | Musculoskeletal chest pain | [facility] | | | | | + + + + | 2016-05-06 00:00 | Musculoskeletal chest pain | [facility] | | | | | + + + + | 2019-06-09 00:00 | Fracture of rib | [facility] | + + + + | 2019-06-09 00:00 | Fracture of rib | [facility] | + + + + | 2019-06-09 00:00 | Fracture of rib | [facility] | + + + + | 2019-06-09 00:00 | Chest injury | [facility] | + + + + | 2019-06-09 00:00 | Chest injury | [facility] | + + + + | 2019-06-09 00:00 | Chest injury | [facility] | + + + + | 2020-11-14 00:00 | Shortness of breath | [facility] | + + + + | 2020-11-14 00:00 | Shortness of breath | [facility] | + + + + | 2020-11-14 00:00 | Shortness of breath | [facility] | + + + + | 2021-09-13 00:00 | Congestive heart failure | [facility] | + + + + | 2021-09-13 00:00 | Congestive heart failure | [facility] | + + + + | 2021-09-13 00:00 | Congestive heart failure | [facility] | + + + + | 2021-09-13 00:00 | Pneumonia | [facility] | + + + + | 2021-09-13 00:00 | Pneumonia | [facility] | + + + + | 2021-09-13 00:00 | Pneumonia | [facility] | + + + + | 2021-09-13 00:00 | Infection due to severe | [facility] | | | acute respiratory syndrome | | | | coronavirus 2 (SARS-CoV-2) | | + + + + | 2021-09-13 00:00 | Infection due to severe | [facility] | | | acute respiratory syndrome | | | | coronavirus 2 (SARS-CoV-2) | | + + + + | 2021-09-13 00:00 | Infection due to severe | [facility] | | | acute respiratory syndrome | | | | coronavirus 2 (SARS-CoV-2) | | + + + + | 2022-09-13 08:44 | Other diseases of the | [facility] | | | pleura (J90-J94) | | + + + + | 2022-09-13 08:44 | UNSPECIFIED CIRRHOSIS OF | [facility] | | | LIVER | | + + + + | 2022-09-13 08:44 | 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 | | + + + + | 2022-09-13 08:44 | OTHER SPECIFIED ABNORMAL | [facility] | | | FINDINGS OF BLOOD CHEMISTRY | | | | | | + + + + | 2022-09-13 08:44 | ABNORMAL FINDINGS ON DX | [facility] | | | IMAGING OF LIVER | | + + + + | 2022-10-01 00:00 | Hyponatremia | [facility] | + + + + | 2022-10-01 00:00 | Hyponatremia | [facility] | + + + + | 2022-10-01 00:00 | Drug-induced hypokalemia | [facility] | + + + + | 2022-10-01 00:00 | Drug-induced hypokalemia | [facility] | + + + + | 2022-10-01 12:29 | OTHER PANCYTOPENIA | [facility] | + + + + | 2022-10-01 12:29 | HYPERSPLENISM | [facility] | + + + + | 2022-10-01 12:29 | HYPOTHYROIDISM, | [facility] | | | UNSPECIFIED | | + + + + | 2022-10-01 12:29 | 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 | | + + + + | 2022-10-01 12:29 | TYPE 2 DIABETES MELLITUS W | [facility] | | | DIABETIC CHRONIC KIDNEY | | + + + + | 2022-10-01 12:29 | TYPE 2 DIABETES MELLITUS | [facility] | | | WITH HYPERGLYCEMIA | | + + + + | 2022-10-01 12:29 | MORBID (SEVERE) OBESITY | [facility] | | | DUE TO EXCESS CALORIES | | + + + + | 2022-10-01 12:29 | HYPERLIPIDEMIA, | [facility] | | | UNSPECIFIED | | + + + + | 2022-10-01 12:29 | HYPERURICEMIA W/O SIGNS OF | [facility] | | | INFLAM ARTHRIT AND TOPH | | + + + + | 2022-10-01 12:29 | HYPOVOLEMIA | [facility] | + + + + | 2022-10-01 12:29 | HYPO-OSMOLALITY AND | [facility] | | | HYPONATREMIA | | + + + + | 2022-10-01 12:29 | HYPOKALEMIA | [facility] | + + + + | 2022-10-01 12:29 | DEPRESSION, UNSPECIFIED | [facility] | + + + + | 2022-10-01 12:29 | UNSPECIFIED MACULAR | [facility] | | | DEGENERATION | | + + + + | 2022-10-01 12:29 | 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 | [facility] | | | FAIL AND STG 1-4/UNSP | | + + + + | 2022-10-01 12:29 | NONRHEUMATIC AORTIC | [facility] | | | (VALVE) STENOSIS | | + + + + | 2022-10-01 12:29 | HEART FAILURE, UNSPECIFIED | [facility] | | | | | + + + + | 2022-10-01 12:29 | UNSPECIFIED CIRRHOSIS OF | [facility] | | | LIVER | | + + + + | 2022-10-01 12:29 | POLYOSTEOARTHRITIS, | [facility] | | | UNSPECIFIED | | + + + + | 2022-10-01 12:29 | OTHER SPECIFIED | [facility] | | | ABNORMALITIES OF PLASMA | | | | PROTEINS | | + + + + | 2022-10-01 12:29 | ADVERSE EFFECT OF LOOP | [facility] | | | DIURETICS, INITIAL ENCOUNTE | | | | | | + + + + | 2022-10-01 12:29 | ADVRS EFF OF CRBNC-ANHYDR | [facility] | | | INHIBTR, BENZO/OTH DIURE | | + + + + | 2022-10-01 12:29 | BODY MASS INDEX (BMI) | [facility] | | | 50.0-59.9, ADULT | | + + + + | 2022-10-01 12:29 | HORMONE REPLACEMENT | [facility] | | | THERAPY | | + + + + | 2022-10-01 12:29 | OTHER NURSING HOME (CURRENT) | [facility] | | | DRUG THERAPY | | + + + + | 2022-10-01 12:29 | ALLERGY STATUS TO SERUM | [facility] | | | AND VACCINE STATUS | | + + + + | 2022-10-01 12:29 | ACQUIRED ABSENCE OF BOTH | [facility] | | | CERVIX AND UTERUS | | + + + + | 2022-10-01 12:29 | HISTORY OF UTERINE SCAR | [facility] | | | FROM PREVIOUS SURGERY | | + + + + | 2022-10-19 09:47 | OTHER CIRRHOSIS OF LIVER | [facility] | + + + + | 2022-12-05 07:56 | UNSPECIFIED CIRRHOSIS OF | [facility] | | | LIVER | | + + + + | 2022-12-22 07:39 | OTHER CIRRHOSIS OF LIVER | [facility] | + + + + | 2023-04-03 00:00 | Muscle spasm | [facility] | + + + + | 2023-04-03 00:00 | Urinary tract infection | [facility] | + + + + | 2023-04-03 00:00 | Generalized weakness | [facility] | + + + + | 2023-04-03 02:44 | TYPE 2 DIABETES MELLITUS | [facility] | | | WITHOUT COMPLICATIONS | | + + + + | 2023-04-03 02:44 | HYPERTENSIVE HEART DISEASE | [facility] | | | WITH HEART FAILURE | | + + + + | 2023-04-03 02:44 | HEART FAILURE, UNSPECIFIED | [facility] | | | | | + + + + | 2023-04-03 02:44 | OTHER MUSCLE SPASM | [facility] | + + + + | 2023-04-03 02:44 | URINARY TRACT INFECTION, | [facility] | | | SITE NOT SPECIFIED | | + + + + | 2023-04-03 02:44 | WEAKNESS | [facility] | + + + + | 2023-04-03 02:44 | OTHER JOURNAL ENTRY AUDIT CLERK (CURRENT) | [facility] | | | DRUG THERAPY | | + + + + | 2023-04-03 02:44 | ALLERGY STATUS TO SERUM | [facility] | | | AND VACCINE STATUS | | + + + + Procedures No information. Results/Labs +--------+--------+ +---------+--------+---------+ | test | date | facility | value | unit | notes | +--------+--------+ +---------+--------+---------+ + + | Result panel 1 | + + + + + + + + + | | 2022-06-14 | [facility] | NEGATIVE | (missing) | (missing) | | (unavailable | 08:15 [facility] | | | | + + + + + + + + + | Result panel 2 | + + + + + +--------+ + + | | 2022-06-18 | [facility] | 7.42 | (missing) | (missing) | | (unavailable | 00:15 | [facility] | | | | + + + +--------+ + + + + | Result panel 3 | + + + + + +--------+ + + | | 2022-06-18 | [facility] | 42.6 | (missing) | (missing) | | (unavailable | 00:15 | [facility] | | | | + + + +--------+ + + + + | Result panel 4 | + + + + + +------+ + + | | 2022-06-18 | [facility] | 97 | (missing) | (missing) | | (unavailable | 00:15 [facility] | | | | + + + +------+ + + + + | Result panel 5 | + + + + + +--------+ + + | | 2022-06-18 | [facility] | 27.7 | (missing) | (missing) | | (unavailable | 00:15 [facility] | | | | + + + +--------+ + + + + | Result panel 6 | + + + + + +-----+ + + | | 2022-06-18 | [facility] | 3 | (missing) | (missing) | | (unavailable | 00:15 [facility] | | | | + + + +-----+ + + + + | Result panel 7 | + + + + + +------+ + + | | 2022-06-18 | [facility] | 98 | (missing) | (missing) | | (unavailable | 00:15 [facility] | | | | + + + +------+ + + + + | Result panel 8 | + + + + + + + + + | | 2022-06-18 | [facility] | CPAP 7 | (missing) | (missing) | | (unavailable | 00:15 [facility] | | | | + + + + + + + + + | Result panel 9 | + + + + + +------+ + + | | 2022-06-18 | [facility] | 29 | (missing) | (missing) | | (unavailable | 00:15 [facility] | | | | + + + +------+ + + + + | Result panel 10 | + + + + + +-------+---------+ + | | 2022-10-01 | [facility] | 7.0 | mg/dL | (missing) | | (unavailable | 10:41:08 [facility] | | | | + + + +-------+---------+ + + + | Result panel 11 | + + + + + +-------+ + + | | 2022-10-01 | [facility] | 6.7 | (missing) | (missing) | | (unavailable | 10:41:08 [facility] | | | | + + + +-------+ + + + + | Result panel 12 | + + + + + +-------+ + + | | 2022-10-01 | [facility] | 2.5 | (missing) | (missing) | | (unavailable | 10:41:08 [facility] | | | | + + + +-------+ + + + + | Result panel 13 | + + + + + +-------+ + + | | 2022-10-01 | [facility] | 4.2 | (missing) | (missing) | | (unavailable | 10:41:08 [facility] | | | | + + + +-------+ + + + + | Result panel 14 | + + + + + +--------+ + + | | 2022-10-01 | [facility] | 0.60 | (missing) | (missing) | | (unavailable | 10:41:08 [facility] | | | | + + + +--------+ + + + + | Result panel 15 | + + + + + +-------+ + + | | 2022-10-01 | [facility] | 1.3 | (missing) | (missing) | | (unavailable | 10:41:08 [facility] | | | | + + + +-------+ + + + + | Result panel 16 | + + + + + +------+ + + | | 2022-10-01 | [facility] | 88 | (missing) | (missing) | | (unavailable | 10:41:08 [facility] | | | | + + + +------+ + + + + | Result panel 17 | + + + + + +------+ + + | | 2022-10-01 | [facility] | 52 | (missing) | (missing) | | (unavailable | 10:41:08 [facility] | | | | + + + +------+ + + + + | Result panel 18 | + + + + + +-------+ + + | | 2022-10-01 | [facility] | 179 | (missing) | (missing) | | (unavailable | 10:41:08 [facility] | | | | + + + +-------+ + + + + | Result panel 19 | + + + + + +-------+ + + | | 2022-10-01 | [facility] | 661 | (missing) | (missing) | | (unavailable | 10:41:08 [facility] | | | | + + + +-------+ + + + + | Result panel 20 | + + + + + +--------+ + + | | 2022-10-01 | [facility] | 68.8 | (missing) | (missing) | | (unavailable | 10:41:08 [facility] | | | | + + + +--------+ + + + + | Result panel 21 | + + + + + +--------+ + + | | 2022-10-01 | [facility] | 34.0 | (missing) | (missing) | | (unavailable | 10:41:08 [facility] | | | | + + + +--------+ + + + + | Result panel 22 | + + + + + +--------+ + + | | 2022-10-01 | [facility] | 10.6 | (missing) | (missing) | | (unavailable | 10:41:08 [facility] | | | | + + + +--------+ + + + + | Result panel 23 | + + + + + + + + + | | 2022-10-01 | [facility] | SEE SCANNED | (missing) | (missing) | | (unavailable | 10:41:08 | [facility] | | | | + + + + + + + + + | Result panel 24 | + + + + + +-------+ + + | | 2022-10-01 | [facility] | 3.4 | (missing) | (missing) | | (unavailable | 10:41:08 [facility] | | | | + + + +-------+ + + + + | Result panel 25 | + + + + + + + + + | | 2022-10-01 | [facility] | SEE | (missing) | (missing) | | (unavailable | 10:41:08 | [facility] COMMENTS [facility] | | [facility] ) | | [facility] | | | | + + + + + + + + + | Result panel 26 | + + + + + +--------+ + + | | 2022-10-01 | [facility] | 3.53 | (missing) | (missing) | | (unavailable | 10:41:08 [facility] | | | | + + + +--------+ + + + + | Result panel 27 | + + + + + +--------+ + + | | 2022-10-01 | [facility] | 10.5 | (missing) | (missing) | | (unavailable | 10:41:08 [facility] | | | | + + + +--------+ + + + + | Result panel 28 | + + + + + +--------+ + + | | 2022-10-01 | [facility] | 30.5 | (missing) | (missing) | | (unavailable | 10:41:08 [facility] | | | | + + + +--------+ + + + + | Result panel 29 | + + + + + +--------+ + + | | 2022-10-01 | [facility] | 86.6 | (missing) | (missing) | | (unavailable | 10:41:08 [facility] | | | | + + + +--------+ + + + + | Result panel 30 | + + + + + +--------+ + + | | 2022-10-01 | [facility] | 29.9 | (missing) | (missing) | | (unavailable | 10:41:08 [facility] | | | | + + + +--------+ + + + + | Result panel 31 | + + + + + +--------+ + + | | 2022-10-01 | [facility] | 34.5 | (missing) | (missing) | | (unavailable | 10:41:08 [facility] | | | | + + + +--------+ + + + + | Result panel 32 | + + + + + +--------+ + + | | 2022-10-01 | [facility] | 13.7 | (missing) | (missing) | | (unavailable | 10:41:08 [facility] | | | | + + + +--------+ + + + + | Result panel 33 | + + + + + +------+ + + | | 2022-10-01 | [facility] | 71 | (missing) | (missing) | | (unavailable | 10:41:08 [facility] | | | | + + + +------+ + + + + | Result panel 34 | + + + + + +--------+ + + | | 2022-10-01 | [facility] | 57.4 | (missing) | (missing) | | (unavailable | 10:41:08 [facility] | | | | + + + +--------+ + + + + | Result panel 35 | + + + + + +--------+ + + | | 2022-10-01 | [facility] | 23.3 | (missing) | (missing) | | (unavailable | 10:41:08 [facility] | | | | + + + +--------+ + + + + | Result panel 36 | + + + + + +--------+ + + | | 2022-10-01 | [facility] | 16.1 | (missing) | (missing) | | (unavailable | 10:41:08 [facility] | | | | + + + +--------+ + + + + | Result panel 37 | + + + + + +-------+ + + | | 2022-10-01 | [facility] | 2.8 | (missing) | (missing) | | (unavailable | 10:41:08 [facility] | | | | + + + +-------+ + + + + | Result panel 38 | + + + + + +-------+ + + | | 2022-10-01 | [facility] | 0.4 | (missing) | (missing) | | (unavailable | 10:41:08 [facility] | | | | + + + +-------+ + + + + | Result panel 39 | + + + + + + + + + | | 2022-10-01 | [facility] | NONE SEEN | (missing) | (missing) | | (unavailable | 12:02:08 [facility] | | | | + + + + + + + + + | Result panel 40 | + + + + + +------+ + + | | 2022-10-01 | [facility] | 3+ | (missing) | (missing) | | (unavailable | 12:08 | [facility] | | | | + + + +------+ + + + + | Result panel 41 | + + + + + + + + + | | 2022-10-01 | [facility] | NONE SEEN | (missing) | (missing) | | (unavailable | 12::08 | [facility] | | | | + + + + + + + + + | Result panel 42 | + + + + + +-------+ + + | | 2022-10-01 | [facility] | Yes | (missing) | (missing) | | (unavailable | 12:02:08 [facility] | | | | + + + +-------+ + + + + | Result panel 43 | + + + + + + + + + | | 2022-10-01 | [facility] | CLEAN CATCH | (missing) | (missing) | | (unavailable | 12:02:08 [facility] | | | | + + + + + + + + + | Result panel 44 | + + + + + +-----+ + + | | 2022-10-01 | [facility] | 5 | (missing) | (missing) | | (unavailable | 12:02:08 [facility] | | | | + + + +-----+ + + + + | Result panel 45 | + + + + + + + + + | | 2022-10-01 | [facility] | SEE SCANNED | (missing) | (missing) | | (unavailable | 12:02:08 | [facility] | | | | + + + + + + + + + | Result panel 46 | + + + + + + + + + | | 2022-10-01 | [facility] | YELLOW | (missing) | (missing) | | (unavailable | 12:02:08 | [facility] | | | | + + + + + + + + + | Result panel 47 | + + + + + +---------+ + + | | 2022-10-01 | [facility] | CLEAR | (missing) | (missing) | | (unavailable | 12:02:08 | [facility] | | | | + + + +---------+ + + + + | Result panel 48 | + + + + + + + + + | | 2022-10-01 | [facility] | NEGATIVE | (missing) | (missing) | | (unavailable | 12:02:08 | [facility] | | | | + + + + + + + + + | Result panel 49 | + + + + + + + + + | | 2022-10-01 | [facility] | NEGATIVE | (missing) | (missing) | | (unavailable | 12:02:08 | [facility] | | | | + + + + + + + + + | Result panel 50 | + + + + + + + + + | | 2022-10-01 | [facility] | NEGATIVE | (missing) | (missing) | | (unavailable | 12:02:08 | [facility] | | | | + + + + + + + + + | Result panel 51 | + + + + + +---------+ + + | | 2022-10-01 | [facility] | 1.010 | (missing) | (missing) | | (unavailable | 12: | [facility] | | | | + + + +---------+ + + + + | Result panel 52 | + + + + + + + + + | | 2022-10-01 | [facility] | NEGATIVE | (missing) | (missing) | | (unavailable | :08 | [facility] | | | | + + + + + + + + + | Result panel 53 | + + + + + +-------+ + + | | 2022-10-01 | [facility] | 6.0 | (missing) | (missing) | | (unavailable | 12::08 | [facility] | | | | + + + +-------+ + + + + | Result panel 54 | + + + + + + + + + | | 2022-10-01 | [facility] | NEGATIVE | (missing) | (missing) | | (unavailable | 12::08 | [facility] | | | | + + + + + + + + + | Result panel 55 | + + + + + + + + + | | 2022-10-01 | [facility] | NORMAL | (missing) | (missing) | | (unavailable | 12:02:08 | [facility] | | | | + + + + + + + + + | Result panel 56 | + + + + + + + + + | | 2022-10-01 | [facility] | POSITIVE | (missing) | (missing) | | (unavailable | 12:02:08 | [facility] | | | | + + + + + + + + + | Result panel 57 | + + + + + +---------+ + + | | 2022-10-01 | [facility] | TRACE | (missing) | (missing) | | (unavailable | 12::08 | [facility] | | | | + + + +---------+ + + + + | Result panel 58 | + + + + + +-------+ + + | | 2022-10-01 | [facility] | 0-1 | (missing) | (missing) | | (unavailable | 12:02:08 | [facility] | | | | + + + +-------+ + + + + | Result panel 59 | + + + + + +--------+ + + | | 2022-10-01 | [facility] | 7-11 | (missing) | (missing) | | (unavailable | 12:02:08 | [facility] | | | | + + + +--------+ + + + + | Result panel 60 | + + + + + + + + + | | 2022-10-01 | [facility] | SQUAMOUS 1+ | (missing) | (missing) | | (unavailable | 12:02:08 | [facility] | | | | + + + + + + + + + | Result panel 61 | + + + + + + + + + | | 2022-10-01 | [facility] | NEGATIVE | (missing) | (missing) | | (unavailable | 12:32:08 | [facility] | | | | | ) | | [facility] | | | | + + + + + + + + + | Result panel 62 | + + + + + +-------+---------+ + | | 2022-10-03 | [facility] | 2.4 | mg/dL | (missing) | | (unavailable | 06:00:08 | [facility] | | | | + + + +-------+---------+ + + + | Result panel 63 | + + + + + +-------+ + + | | 2022-10-03 | [facility] | 199 | (missing) | (missing) | | (unavailable | 17:02:08 | [facility] | | | | + + + +-------+ + + + + | Result panel 64 | + + + + + +-------+---------+ + | | 2022-10-03 | [facility] | 260 | mg/dL | (missing) | | (unavailable | 21:29:08 | [facility] | | | | + + + +-------+---------+ + + + | Result panel 65 | + + + + + +------+---------+ + | | 2022-10-03 | [facility] | 43 | mg/dL | (missing) | | (unavailable | 21:29:08 | [facility] | | | | + + + +------+---------+ + + + | Result panel 66 | + + + + + +--------+---------+ + | | 2022-10-03 | [facility] | 1.49 | mg/dL | (missing) | | (unavailable | 21:29:08 | [facility] | | | | + + + +--------+---------+ + + + | Result panel 67 | + + + + + +------+ + + | | 2022-10-03 | [facility] | 39 | (missing) | (missing) | | (unavailable | 21:29:08 | [facility] | | | | + + + +------+ + + + + | Result panel 68 | + + + + + +---------+ + + | | 2022-10-03 | [facility] | 28.85 | (missing) | (missing) | | (unavailable | 21:29:08 | [facility] | | | | + + + +---------+ + + + + | Result panel 69 | + + + + + +-------+ + + | | 2022-10-03 | [facility] | 130 | (missing) | (missing) | | (unavailable | 21:29:08 | [facility] | | | | + + + +-------+ + + + + | Result panel 70 | + + + + + +-------+ + + | | 2022-10-03 | [facility] | 4.2 | (missing) | (missing) | | (unavailable | 21:29:08 | [facility] | | | | + + + +-------+ + + + + | Result panel 71 | + + + + + +------+ + + | | 2022-10-03 | [facility] | 96 | (missing) | (missing) | | (unavailable | 21:29:08 | [facility] | | | | + + + +------+ + + + + | Result panel 72 | + + + + + +------+ + + | | 2022-10-03 | [facility] | 30 | (missing) | (missing) | | (unavailable | 21:29:08 | [facility] | | | | + + + +------+ + + + + | Result panel 73 | + + + + + +-------+ + + | | 2022-10-03 | [facility] | 8.2 | (missing) | (missing) | | (unavailable | ::08 | [facility] | | | | + + + +-------+ + + + + | Result panel 74 | + + + + + +-------+---------+ + | | 2022-10-03 | [facility] | 8.7 | mg/dL | (missing) | | (unavailable | ::08 | [facility] | | | | + + + +-------+---------+ + + + | Result panel 75 | + + + + + +-------+ + + | | 2023-04-03 | [facility] | 5.0 | (missing) | (missing) | | (unavailable | 02:53:07 | [facility] | | | | + + + +-------+ + + + + | Result panel 76 | + + + + + +--------+ + + | | 2023-04-03 | [facility] | 57.1 | (missing) | (missing) | | (unavailable | 02:53:07 | [facility] | | | | + + + +--------+ + + + + | Result panel 77 | + + + + + +--------+ + + | | 2023-04-03 | [facility] | 26.9 | (missing) | (missing) | | (unavailable | 02:53:07 | [facility] | | | | + + + +--------+ + + + + | Result panel 78 | + + + + + +--------+ + + | | 2023-04-03 | [facility] | 13.2 | (missing) | (missing) | | (unavailable | 02:53:07 [facility] | | | | + + + +--------+ + + + + | Result panel 79 | + + + + + +-------+ + + | | 2023-04-03 | [facility] | 1.9 | (missing) | (missing) | | (unavailable | 02:53:07 [facility] | | | + + + +-------+ + + + + | Result panel 80 | + + + + + +-------+ + + | | 2023-04-03 | [facility] | 0.9 | (missing) | (missing) | | (unavailable | 02:53:07 [facility] | | | + + + +-------+ + + + + | Result panel 81 | + + + + + +--------+ + + | | 2023-04-03 | [facility] | 4.14 | (missing) | (missing) | | (unavailable | 02:53:07 [facility] | | | + + + +--------+ + + + + | Result panel 82 | + + + + + +--------+ + + | | 2023-04-03 | [facility] | 12.2 | (missing) | (missing) | | (unavailable | 02:53:07 [facility] | | | + + + +--------+ + + + + | Result panel 83 | + + + + + +-------+---------+ + | | 2023-04-03 | [facility] | 215 | mg/dL | (missing) | | (unavailable | 02:53:07 [facility] | | | + + + +-------+---------+ + + + | Result panel 84 | + + + + + +------+---------+ + | | 2023-04-03 | [facility] | 30 | mg/dL | (missing) | | (unavailable | 02:53:07 [facility] | | | + + + +------+---------+ + + + | Result panel 85 | + + + + + +--------+---------+ + | | 2023-04-03 | [facility] | 1.72 | mg/dL | (missing) | | (unavailable | 02:53:07 [facility] | | | + + + +--------+---------+ + + + | Result panel 86 | + + + + + +------+ + + | | 2023-04-03 | [facility] | 32 | (missing) | (missing) | | (unavailable | 02:53:07 [facility] | | | + + + +------+ + + + + | Result panel 87 | + + + + + +---------+ + + | | 2023-04-03 | [facility] | 17.44 | (missing) | (missing) | | (unavailable | 02:53:07 [facility] | | | + + + +---------+ + + + + | Result panel 88 | + + + + + +--------+ + + | | 2023-04-03 | [facility] | 37.1 | (missing) | (missing) | | (unavailable | 02:53:07 [facility] | | | + + + +--------+ + + + + | Result panel 89 | + + + + + +-------+ + + | | 2023-04-03 | [facility] | 138 | (missing) | (missing) | | (unavailable | 02:53:07 [facility] | | | + + + +-------+ + + + + | Result panel 90 | + + + + + +-------+ + + | | 2023-04-03 | [facility] | 4.5 | (missing) | (missing) | | (unavailable | 02:53:07 [facility] | | | + + + +-------+ + + + + | Result panel 91 | + + + + + +-------+ + + | | 2023-04-03 | [facility] | 102 | (missing) | (missing) | | (unavailable | 02:53:07 [facility] | | | | + + + +-------+ + + + + | Result panel 92 | + + + + + +------+ + + | | 2023-04-03 | [facility] | 27 | (missing) | (missing) | | (unavailable | 02:53:07 [facility] | | | | + + + +------+ + + + + | Result panel 93 | + + + + + +--------+ + + | | 2023-04-03 | [facility] | 13.5 | (missing) | (missing) | | (unavailable | 02:53:07 [facility] | | | + + + +--------+ + + + + | Result panel 94 | + + + + + +-------+---------+ + | | 2023-04-03 | [facility] | 8.8 | mg/dL | (missing) | | (unavailable | 02:53:07 [facility] | | | | + + + +-------+---------+ + + + | Result panel 95 | + + + + + +-------+---------+ + | | 2023-04-03 | [facility] | 2.2 | mg/dL | (missing) | | (unavailable | 02:53:07 [facility] | | | | + + + +-------+---------+ + + + | Result panel 96 | + + + + + +-------+ + + | | 2023-04-03 | [facility] | 7.7 | (missing) | (missing) | | (unavailable | 02:53:07 [facility] | | | | + + + +-------+ + + + + | Result panel 97 | + + + + + +-------+ + + | | 2023-04-03 | [facility] | 2.7 | (missing) | (missing) | | (unavailable | 02:53:07 [facility] | | | | + + + +-------+ + + + + | Result panel 98 | + + + + + +-------+ + + | | 2023-04-03 | [facility] | 5.0 | (missing) | (missing) | | (unavailable | 02:53:07 [facility] | | | + + + +-------+ + + + + | Result panel 99 | + + + + + +--------+ + + | | 2023-04-03 | [facility] | 89.6 | (missing) | (missing) | | (unavailable | 02:53:07 [facility] | | | | + + + +--------+ + + + + | Result panel 100 | + + + + + +--------+ + + | | 2023-04-03 | [facility] | 0.54 | (missing) | (missing) | | (unavailable | 02:53:07 [facility] | | | + + + +--------+ + + + + | Result panel 101 | + + + + + +-------+ + + | | 2023-04-03 | [facility] | 1.1 | (missing) | (missing) | | (unavailable | 02:53:07 [facility] | | | + + + +-------+ + + + + | Result panel 102 | + + + + + +------+ + + | | 2023-04-03 | [facility] | 52 | (missing) | (missing) | | (unavailable | 02:53:07 [facility] | | | + + + +------+ + + + + | Result panel 103 | + + + + + +------+ + + | | 2023-04-03 | [facility] | 40 | (missing) | (missing) | | (unavailable | 02:53:07 [facility] | | | + + + +------+ + + + + | Result panel 104 | + + + + + +-------+ + + | | 2023-04-03 | [facility] | 255 | (missing) | (missing) | | (unavailable | 02:53:07 [facility] | | | + + + +-------+ + + + + | Result panel 105 | + + + + + +------+ + + | | 2023-04-03 | [facility] | 81 | (missing) | (missing) | | (unavailable | 02:53:07 [facility] | | | + + + +------+ + + + + | Result panel 106 | + + + + + +-------+ + + | | 2023-04-03 | [facility] | 8.8 | (missing) | (missing) | | (unavailable | 02:53:07 [facility] | | | + + + +-------+ + + + + | Result panel 107 | + + + + + +--------+ + + | | 2023-04-03 | [facility] | 29.5 | (missing) | (missing) | | (unavailable | 02:53:07 [facility] | | | + + + +--------+ + + + + | Result panel 108 | + + + + + +--------+ + + | | 2023-04-03 | [facility] | 32.9 | (missing) | (missing) | | (unavailable | 02:53:07 [facility] | | | + + + +--------+ + + + + | Result panel 109 | + + + + + +--------+ + + | | 2023-04-03 | [facility] | 15.2 | (missing) | (missing) | | (unavailable | 02:53:07 [facility] | | | + + + +--------+ + + + + | Result panel 110 | + + + + + +-------+ + + | | 2023-04-03 | [facility] | 127 | (missing) | (missing) | | (unavailable | 02:53:07 [facility] | | | + + + +-------+ + + + + | Result panel 111 | + + + + + +-------+ + + | | 2023-04-03 | [facility] | 196 | (missing) | (missing) | | (unavailable | 03:03:07 [facility] | | | + + + +-------+ + + + + | Result panel 112 | + + + + + + + + + | | 2023-04-03 | [facility] | YELLOW | (missing) | (missing) | | (unavailable | 03:38:07 [facility] | | | + + + + + + + + + | Result panel 113 | + + + + + + + + + | | 2023-04-03 | [facility] | CLOUDY | (missing) | (missing) | | (unavailable | 03:38:07 [facility] | | | + + + + + + + + + | Result panel 114 | + + + + + + + + + | | 2023-04-03 | [facility] | >=1000 | (missing) | (missing) | | (unavailable | 03:38:07 [facility] | | | + + + + + + + + + | Result panel 115 | + + + + + + + + + | | 2023-04-03 | [facility] | NEGATIVE | (missing) | (missing) | | (unavailable | 03:38:07 [facility] | | | + + + + + + + + + | Result panel 116 | + + + + + + + + + | | 2023-04-03 | [facility] | NEGATIVE | (missing) | (missing) | | (unavailable | 03:38:07 [facility] | | | + + + + + + + + + | Result panel 117 | + + + + + +---------+ + + | | 2023-04-03 | [facility] | 1.010 | (missing) | (missing) | | (unavailable | 03:38:07 [facility] | | | + + + +---------+ + + + + | Result panel 118 | + + + + + +---------+ + + | | 2023-04-03 | [facility] | SMALL | (missing) | (missing) | | (unavailable | 03:38:07 [facility] | | | + + + +---------+ + + + + | Result panel 119 | + + + + + +-------+ + + | | 2023-04-03 | [facility] | 6.5 | (missing) | (missing) | | (unavailable | 03:38:07 [facility] | | | + + + +-------+ + + + + | Result panel 120 | + + + + + + + + + | | 2023-04-03 | [facility] | NEGATIVE | (missing) | (missing) | | (unavailable | 03:38:07 [facility] | | | + + + + + + + + + | Result panel 121 | + + + + + + + + + | | 2023-04-03 | [facility] | NORMAL | (missing) | (missing) | | (unavailable | 03:38:07 [facility] | | | + + + + + + + + + | Result panel 122 | + + + + + + + + + | | 2023-04-03 | [facility] | NEGATIVE | (missing) | (missing) | | (unavailable | 03:38:07 [facility] | | | + + + + + + + + + | Result panel 123 | + + + + + + + + + | | 2023-04-03 | [facility] | MODERATE | (missing) | (missing) | | (unavailable | 03:38:07 [facility] | | | + + + + + + + + + | Result panel 124 | + + + + + +-------+ + + | | 2023-04-03 | [facility] | 0-1 | (missing) | (missing) | | (unavailable | 03:38:07 [facility] | | | + + + +-------+ + + + + | Result panel 125 | + + + + + +-------+ + + | | 2023-04-03 | [facility] | >50 | (missing) | (missing) | | (unavailable | 03:38:07 [facility] | | | + + + +-------+ + + + + | Result panel 126 | + + + + + + + + + | | 2023-04-03 | [facility] | SQUAMOUS 1+ | (missing) | (missing) | | (unavailable | 03:38:07 [facility] | | | | + + + + + + + + + | Result panel 127 | + + + + + + + + + | | 2023-04-03 | [facility] | NONE SEEN | (missing) | (missing) | | (unavailable | 03:38:07 [facility] | | | + + + + + + + + + | Result panel 128 | + + + + + +------+ + + | | 2023-04-03 | [facility] | 4+ | (missing) | (missing) | | (unavailable | 03:38:07 [facility] | | | + + + +------+ + + + + | Result panel 129 | + + + + + + + + + | | 2023-04-03 | [facility] | NONE SEEN | (missing) | (missing) | | (unavailable | 03:38:07 [facility] | | | + + + + + + + + + | Result panel 130 | + + + + + +-------+ + + | | 2023-04-03 | [facility] | Yes | (missing) | (missing) | | (unavailable | 03:38:07 [facility] | | | | + + + +-------+ + + Social History No information. Vital Signs + + + +---------+ | date | measurement | value | units | + + + +---------+ | 2022-10-01 00:00 | BMI | 49.4 | kg/m2 | + + + +---------+ | 2022-10-01 00:00 | height_metric | 157.48 | cm | + + + +---------+ | 2022-10-01 00:00 | height_standard | 62 | in | + + + +---------+ | 2022-10-01 00:00 | weight_metric | 122.6 | kg | + + + +---------+ | 2022-10-01 00:00 | weight_standard | 270.29 | lb | + + + +---------+ | 2022-10-04 00:00 | BP_diastolic | 49 | mmHg | + + + +---------+ | 2022-10-04 00:00 | BP_systolic | 129 | mmHg | + + + +---------+ | 2022-10-04 00:00 | heart_rate | 66 | /min | + + + +---------+ | 2022-10-04 00:00 | o2_saturation | 100 | % | + + + +---------+ | 2022-10-04 00:00 | respiration_rate | 16 | /min | + + + +---------+ | 2022-10-04 00:00 | temperature_metric | 36.5 | C | | | | | | + + + +---------+ | 2022-10-04 00:00 | | 97.7 | F | | | temperature_standar | | | | | d | | | + + + +---------+ | 2023-04-03 00:00 | BMI | 54.9 | kg/m2 | + + + +---------+ | 2023-04-03 00:00 | BP_diastolic | 74 | mmHg | + + + +---------+ | 2023-04-03 00:00 | BP_systolic | 124 | mmHg | + + + +---------+ | 2023-04-03 00:00 | heart_rate | 79 | /min | + + + +---------+ | 2023-04-03 00:00 | height_metric | 157.48 | cm | + + + +---------+ | 2023-04-03 00:00 | height_standard | 62 | in | + + + +---------+ | 2023-04-03 00:00 | o2_saturation | 99 | % | + + + +---------+ | 2023-04-03 00:00 | respiration_rate | 17 | /min | + + + +---------+ | 2023-04-03 00:00 | temperature_metric | 36.78 | C | | | | | | + + + +---------+ | 2023-04-03 00:00 | | 98.2 | F | | | temperature_standar | | | | | d | | | + + + +---------+ | 2023-04-03 00:00 | weight_metric | 136.08 | kg | + + + +---------+ | 2023-04-03 00:00 | weight_standard | 300 | lb | + + + +---------+"
[~2023-04-05 11:36] MED LIST changes: +ACTOS15 MG PO; +ALLOPURINOL100 MG PO; +CELECOXIB100 MG PO; +CEPHALEXIN500 M1 PO; +CITRACAL + D E1 EACH PO; +CRESTOR10 MG PO; +FAMOTIDINE10 MG PO; +GLIPIZIDE XL2.5 MG PO; +HYDROCHLOROTHIA25 MG PO; +LEVOTHYROXINE125 MCG PO; +MAGNESIUM250 M1 PO; +METFORMIN HCL750 MG PO; +POTASSIUM CHLO10 ME2 PO; +TORSEMIDE20 MG PO; +VITAMIN B122500 MCG PO; +VITAMIN D350 MC3 PO
[2023-04-05] MEDS ORDERED: JARDIANCE25 MG PO (12:24)
[2023-04-05 18:01] VITALS: BP 106/56
--- OUTSIDE RECORDS SUMMARY | 2023-04-05 18:22 | XMS ---
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 Zabrina has no Care Guidelines for this patient. [facility]12 MO.) [facility] NOTE: Visits indicate total known visits. ED/[facility] [place] [facility]IT TRACK[facility] (12 MO.) [facility] COMPLAINT: - WEAKNESS 04/03/2023 02:44 [facility] TYPE: Emergency COMPLAINT: - WEAKNESS DIAGNOSES: - Allergy status to serum and vaccine - Heart failure, unspecified - Hypertensive heart disease with heart failure - Other superintendent terminal (current) drug therapy - Other muscle spasm - Type 2 diabetes mellitus without complications - Urinary tract infection, site not specified - Weakness 10/01/2022 10:02 [facility] [place] TYPE: Emergency COMPLAINT: - SWELLING/BODY PART INPATIENT VISIT TRACKING (12 MO.) 10/01/2022 12:29 [facility] TYPE: Medical Surgical COMPLAINT: - SEVERE HYPONATREMIA DIAGNOSES: - Acquired absence of both cervix and uterus - Acquired absence of both cervix and uterus - Adverse effect of carbonic-anhydrase inhibitors, benzothiadiazides and other diuretics, initial encounter - Adverse effect of carbonic-anhydrase inhibitors, benzothiadiazides and other diuretics, initial encounter - Adverse effect of loop [high-ceiling] diuretics, initial encounter - Adverse effect of loop [high-ceiling] diuretics, initial encounter - Allergy status to serum and vaccine - Allergy status to serum and vaccine - Body mass index [BMI] 50.0-59.9, adult - Body mass index [BMI] 50.0-59.9, adult - Chronic kidney disease, stage 3b - Chronic kidney disease, stage 3b - Contact with and (suspected) exposure to COVID-19 - Contact with and (suspected) exposure to COVID-19 - Depression, unspecified - Depression, unspecified - Heart failure, unspecified - Heart failure, unspecified - History of uterine scar from previous surgery - History of uterine scar from previous surgery - Hormone replacement therapy - Hormone replacement therapy - Hyperlipidemia, unspecified - Hyperlipidemia, unspecified - Hypersplenism - Hypersplenism - Hypertensive heart and chronic kidney disease with heart failure and stage 1 through stage 4 chronic kidney disease, or unspecified chronic kidney disease - Hypertensive heart and chronic kidney disease with heart failure and stage 1 through stage 4 chronic kidney disease, or unspecified chronic kidney disease - Hyperuricemia without signs of inflammatory arthritis and tophaceous disease - Hyperuricemia without signs of inflammatory arthritis and tophaceous disease - Hypo-osmolality and hyponatremia - Hypokalemia - Hypokalemia - Hypothyroidism, unspecified - Hypothyroidism, unspecified - Hypovolemia - Hypovolemia - Morbid (severe) obesity due to excess calories - Morbid (severe) obesity due to excess calories - Nonrheumatic aortic (valve) stenosis - Nonrheumatic aortic (valve) stenosis - Other alf (current) drug therapy - Other alf (current) drug therapy - Other pancytopenia - Other pancytopenia - Other specified abnormalities of plasma proteins - Other specified abnormalities of plasma proteins - Polyosteoarthritis, unspecified - Polyosteoarthritis, unspecified - Type 2 diabetes mellitus with diabetic chronic kidney disease - Type 2 diabetes mellitus with diabetic chronic kidney disease - 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
== END 2023-04-05 18:00 | disposition short-term general hospital (02) ==
LOC: ED 11:36
DX: R53.1 Weakness (principal); R32 Unspecified urinary incontinence; E78.5 Hyperlipidemia, unspecified; E11.9 Type 2 diabetes mellitus without complications; I11.0 Hypertensive heart disease with heart failure; I50.9 Heart failure, unspecified; E07.9 Disorder of thyroid, unspecified; Z88.7 Allergy status to serum and vaccine; Z88.8 Allergy status to other drugs, medicaments and biological substances; Z79.84 Long term (current) use of oral hypoglycemic drugs; Z79.899 Other long term (current) drug therapy
CPT/HCPCS: 36415; 51798; 70450; 80053; 82553; 83735; 84443; 85025; 99285 25; J2060

== ENCOUNTER 2023-07-29 14:53 | Emergency (ER) | payer MEDICARE, OTHER | END 2023-07-29 15:28 | disposition home or self-care (01) | LOC: ED 14:53 | DX: S91.202D Unspecified open wound of left great toe with damage to nail, subsequent encounter (principal); E11.9 Type 2 diabetes mellitus without complications; I11.0 Hypertensive heart disease with heart failure; I50.9 Heart failure, unspecified; W22.8XXA Striking against or struck by other objects, initial encounter; Z88.8 Allergy status to other drugs, medicaments and biological substances; Z88.7 Allergy status to serum and vaccine; Z79.890 Hormone replacement therapy; Z79.899 Other long term (current) drug therapy ==

== ENCOUNTER 2024-08-17 22:05 | Inpatient (IN) | payer MEDICARE, OTHER ==
[~2024-08-17] VITALS: Ht 157.5 cm; Wt 126.6 kg
[~2024-08-17 22:05] MED LIST changes: +ALENDRONATE SOD70 MG PO; +GABAPENTIN600 MG PO; +JARDIANCE25 MG PO; +LANTUS SOL100 UNIT/1 SUB-Q; +SPIRONOLACTONE25 MG PO
[2024-08-17] MEDS ORDERED: ACETAMINOPHEN 500 MG TAB PO ONE (22:30)
[2024-08-17 22:31] LABS: HEMOGLOBIN 12.4 g/dL (12.0-18.0); PLATELET COUNT 67 K/uL (140-440)
[2024-08-17 22:36] LABS: BASOPHILS 0.2 % (0-2); EOSINOPHILS 0.1 % (0-6); LYMPHOCYTES 5.5 % (24-44); MCH 31.6 (27-36); MCHC 33.5 g/dl (30-36); MCV 94.3 fl (81-99); MONOCYTES 5.6 % (0-12); NEUTROPHILS 88.6 % (39-80); RBC 3.92 M/ul (4.3-5.7); RDW 14.7 (10.5-15.0)
[2024-08-17 22:40] LABS: BILIRUBIN, URINE NEGATIVE (negative); BLOOD/HGB, URINE TRACE-I (Negative); KETONE, URINE NEGATIVE (Negative); LEUK ESTERASE, URINE NEGATIVE (negative); NITRITE, URINE NEGATIVE (negative); PH, URINE 5.5 (5-7)
[2024-08-17 22:43] LABS: INR 1.22 (0.80-1.30); PROTIME 14.6 Sec (11.2-14.2)
[2024-08-17] MEDS ORDERED: CEFTRIAXONE/SODIUM CHLORIDE 2 GM/100 ML PIGGYBACK IV ONE (22:45)
[2024-08-17 22:47] LABS: ALBUMIN 2.8 g/dL (3.4-5.0); ALBUMIN/GLOBULIN RATIO 0.55 (1.1-2.4); ANION GAP 18.9 (7-21); BILIRUBIN, TOTAL 2.4 ng/dL (0.2-1.0); BUN/CREATININE RATIO 20.47 (6.0-28.6); CREATININE, SERUM 2.1 mg/dL (0.55-1.02); POTASSIUM 3.9 mmol/L (3.5-5.1); PROTEIN, TOTAL 7.9 g/dL (6.4-8.2)
[2024-08-17 22:54] LABS: LACTIC ACID, BLOOD 3.8 mmol/L (0.4-2.0)
[2024-08-17 23:08] LABS: BACTERIA, URINE 2+ /hpf (negative); CASTS, URINE HYALINE 1+ \\lpf; CRYSTALS, URINE NONE SEEN (0-1+); EPITHELIAL CELLS, URINE SQUAMOUS 1+ /lpf (0-1+)
[2024-08-17 23:09] LABS: COLLECTION TYPE, URINE CLEAN CATCH; REFLEX CULTURE, URINE Yes (No)
[2024-08-17 23:12] LABS: MAGNESIUM 1.8 mg/dL (1.8-2.4)
[2024-08-17] MEDS ORDERED: TAMSULOSIN HCL0.4 MG PO (23:29)
[2024-08-17] MEDS ORDERED: TORSEMIDE20 MG PO (23:29)
[2024-08-17] MEDS ORDERED: LO-DOSE ASPIRIN81 MG PO (23:29)
[2024-08-17 23:42] LABS: INFLUENZA B NAA NEGATIVE (NEGATIVE); RESPIRATORY SYNCYTIAL VIR NAA NEGATIVE (NEGATIVE)
[2024-08-17] MEDS ORDERED: LACTATED RINGER'S 1,000 ML IV ONE (23:45)
[2024-08-18] MEDS ORDERED: DAPTOmycin 500 MG/10 ML VIAL IV ONE (00:15)
[2024-08-18] MEDS ORDERED: ACETAMINOPHEN 325 MG TAB PO PRN ×2 (00:30→11:45)
[2024-08-18] MEDS ORDERED: LACTATED RINGER'S 1,000 ML IV SCH (00:30)
[2024-08-18] MEDS ORDERED: ondansetron HCL 4 MG/2 ML VIAL IV PRN ×2 (00:30→11:45)
[2024-08-18 00:50] LABS: LACTIC ACID, BLOOD 2.6 mmol/L (0.4-2.0)
[2024-08-18] MEDS ORDERED: LACTATED RINGER'S 1,000 ML IV ONE (01:00)
--- NOTE | 2024-08-18 01:50 | NUR ---
PATIENT ARRIVED TO CCU ROOM 129 VIA STRETCHER
[2024-08-18] MEDS ORDERED: ALBUTEROL SULFATE 0.083% 3 ML VIAL INH PRN (02:00)
--- NOTE | 2024-08-18 02:10 | NUR ---
PATIENT ASSESSMENT COMPLETE. PATIENT IS SITTING UP AWAKE IN BED. PATIENT IS ALERT AND ORIENTED TO SELF AND PLACE, CONFUSED ON EVENT AND TIME. PATIENT EASILY REORIENTED. PATIENT DAUGHTER AT BEDSIDE, WITH HOME CPAP. RESP THERAPY IN ROOM TO SET UP FOR PATIENT USE. PATIENT ON ROOM AIR, SATURATING WELL. PATIENT HAS PURWICK IN PLACE. PATIENT NOTED TO HAVE LE +1 EDEMA. REDDNESS NOTED IN BREAST FOLDS AND PANNUS AREA. COCCYX AREA NOTED TO BE REDDENED AND NONBLANCHABLE. IV SITES WNL. TEMP TAKEN; 100.2. PATIENT UPDATED ON PLAN OF CARE. NO NEEDS AT THIS TIME. CALL LIGHT WITHIN REACH.
[2024-08-18 02:14] VITALS: BP 140/55
--- NOTE | 2024-08-18 03:20 | NUR ---
PATIENT RESTING IN BED WITH EYES CLOSED, RESPIRATIONS EVEN AND UNLABORED. PATIENT HAS CPAP ON, SPO2 AT 93%. NO NEEDS AT THIS TIME. CALL LIGHT WITHIN REACH.
--- NOTE | 2024-08-18 04:30 | NUR ---
PATIENT USED CALL LIGHT STATING SHE NEEDED TO PEE AGAIN. PATIENT REMINDED OF PUREWICK IN PLACE. NO FURTHER NEEDS AT THIS TIME. CALL LIGHT WITHIN REACH.
[2024-08-18 05:40] LABS: BASOPHILS 0.2 % (0-2); EOSINOPHILS 0.1 % (0-6); HEMATOCRIT 31.5 % (35.0-50.0); HEMOGLOBIN 10.7 g/dL (12.0-18.0); MCH 31.6 (27-36); MCHC 33.9 g/dl (30-36); MCV 93.4 fl (81-99); MONOCYTES 6.1 % (0-12); NEUTROPHILS 89.6 % (39-80); PLATELET COUNT 59 K/uL (140-440); RBC 3.37 M/ul (4.3-5.7); RDW 14.8 (10.5-15.0)
[2024-08-18 05:56] LABS: ALBUMIN 2.1 g/dL (3.4-5.0); ALBUMIN/GLOBULIN RATIO 0.51 (1.1-2.4); ANION GAP 13.5 (7-21); BILIRUBIN, TOTAL 1.7 ng/dL (0.2-1.0); BUN/CREATININE RATIO 22.54 (6.0-28.6); CALCIUM 8.2 mg/dL (8.5-10.1); CREATININE, SERUM 1.73 mg/dL (0.55-1.02); POTASSIUM 3.5 mmol/L (3.5-5.1); PROTEIN, TOTAL 6.2 g/dL (6.4-8.2)
--- NOTE | 2024-08-18 06:00 | NUR ---
patient used call light stating she needs to have a BM. patient states she feels to weak to use BSC. bed monge placed under patient, unable to have BM. patient repositioned in bed. CPAP taken off. no further needs at this time.
[2024-08-18 06:38] VITALS: BP 134/44
--- NOTE | 2024-08-18 08:53 | NUR ---
SBAR REPORT RECEIVED FROM LUIS PINA. ALL EVENTS OF THE EVENING WERE DISCUSSED AND PLAN OF CARE REVIEWED. TEAM ROUNDS COMPLETED REGARDING MIGUEL. SEE NEW ORDERS AND LABS. DAUGHTER CARLOS ALBERTO UPDATED REGARDING PROGRESS AND PLAN OF CARE. MIGUEL ENDORSED NAUSEA AND SLIGHT HEADACHE THIS AM. PRN ONDANSETRON AND ACETAMINOPHEN GIVEN MIGUEL IS ALERT AND ORIENTED X4, MOVES ALL EXTREMITIES, ENDORSES CHRONIC PAIN IN BILATERAL LOWER EXTREMTIIES 2+ EDEMA BILATERAL LOWER EXTREMTIIES, TIGHT, DRY SKIN, AFEBRILE, NSR, REPEAT TROPONIN 124.8 RA, BREATH SOUNDS CLEAR GI/- NORMOACTIVE BOWEL TONES, NAUSEA, DECLINED BREAKFAST, PUREWICK ASSESSED AND REPLACED, URINE IS NOTED TO BE CONCENTRATED AND CLOUDY INT MICANAZOLE POWDER PLACED UNDER BREAST FOLDS AND PANNUS
[2024-08-18] MEDS ORDERED: MICONAZOLE NITRATE 1 EA BTL TOP SCH (09:00)
[2024-08-18 09:22] VITALS: BP 124/58
--- NOTE | 2024-08-18 10:27 | NUR ---
IN TO ROOM, PATIENT AWAKE IN BED. ASSESSMENT COMPLETED. PATIENT CURRENTLY LIVES IN A HOUSE WITH HER DAUGHTER AND SON [place]. PATIENT STATES THAT FAMILY WILL BE AVAILABLE AT DISCHARGE TO HELP. HAS 2 STEPS INTO THE HOME. PATIENT CURRENTLY HAS A WALKER SHE USES IF NEEDED AND A RAMP. HOME CPAP AT THE BEDSIDE. DENIES ANY FINANCIAL NEEDS AT THIS TIME. PATIENT STATES SHE FEELS THAT SHE HAS NO CONCERNS FOR DISCHARGE AT THIS TIME.
--- NOTE | 2024-08-18 11:04 | NUR ---
MD BHATIA CALLED TO REPORT PAIN IN POSTERIOR LEFT LOWER KNEE. MULTIPLE INTERVENTIONS ATTEMPTED INCLUDING ACETAMINOPHEN, WARM BLANKETS, REPOSITIONS. MIGUEL REQUESTED VOLTAREN CREAM. VERBAL ORDER RECEIVED.
[2024-08-18] MEDS ORDERED: DICLOFENAC 1% TOPICAL GEL TOP PRN (11:15)
--- NOTE | 2024-08-18 11:29 | NUR ---
DICLOFENAC CREAM RUBBED ON POSTERIOR LEFT KNEE FOR ENDORSED PAIN. MIGUEL IS GREATFUL FOR HER CARE
--- NOTE | 2024-08-18 11:29 | EKG ---
[facility] [address] [place], [place] [address] Signed Normal sinus rhythm Normal ECG When compared with ECG of 03-APR-2023 02:49, No significant change was found Confirmed by Jeff Bhatia MD ([id number]) on 08/18/2024 11:29:11 AM Electronically Signed By: JEFF BHATIA DO 08/18/24 1129 PATIENT NAME: HUMBERTOPRABHAKARMIGUEL Electrocardiogram DATE OF : 55 PHYSICIAN: JEFF BHATIA DO REPORT #: [id number] REPORT IS CONFIDENTIAL AND NOT TO BE RELEASED WITHOUT AUTHORIZATION
[2024-08-18] MEDS ORDERED: HEParin SOD (PORCINE) 5,000 UNIT/ML SDV SUB-Q SCH (11:36)
[2024-08-18] MEDS ORDERED: CEFTRIAXONE/SODIUM CHLORIDE 2 GM/100 ML PIGGYBACK IV SCH (11:39)
[2024-08-18] MEDS ORDERED: DEXTROSE 5% 1,000 ML IV PRN (11:45)
[2024-08-18] MEDS ORDERED: DEXTROSE 50% 50 ML SYR IV PRN ×2 (11:45)
[2024-08-18] MEDS ORDERED: PROCHLORPERAZINE EDISYLATE 10 MG/2 ML VIAL IV PRN (11:45)
[2024-08-18] MEDS ORDERED: IBLOOD GLUCOSE TEST STRIP 1 EA TEST XX PRN (11:45)
[2024-08-18] MEDS ORDERED: GLUCAGON,HUMAN RECOMBINANT 1 MG/ML VIAL SUB-Q PRN (11:45)
--- NOTE | 2024-08-18 11:56 | NUR ---
UR CLINICAL REVIEW: 2 MN FOR [facility] INPT CRITERIA FOR CELLULITIS MEDICARE INPT 08/18/24 @ 1137 ORDER MATCHES REG NO AUTH REQUIRED PER MEDICARE GUIDELINES DISCHARGE TO HOME WHEN STABLE
[2024-08-18] MEDS ORDERED: IBLOOD GLUCOSE TEST STRIP 1 EA TEST VI SCH (12:00)
[2024-08-18] MEDS ORDERED: INSULIN LISPRO 100 UNIT/ML ML SUB-Q SCH (12:00)
[2024-08-18] MEDS ORDERED: PHARMACY RENAL DOSE ADJUSTMENT 1 DOSE MISC PO SCH (12:00)
[2024-08-18 12:22] VITALS: BP 119/69
[2024-08-18] MEDS ORDERED: LIDOCAINE PATCH REMOVAL 1 EA TD SCH (13:45)
[2024-08-18] MEDS ORDERED: LIDOCAINE HCL 4% 1 EACH PATCH TD SCH (13:45)
--- NOTE | 2024-08-18 14:10 | NUR ---
4% LIDOCAINE PATCH PLACED ON LATERAL LEFT KNEE. CHRONIC PAIN ENDORSED 9/10 MEDIUM SIZED SOFT, BROWN STOOL. PUREWICK AND LINENS CHANGED, ÓSCAR CARE COMPLETED WARM BLANKET AND TOWELS ROLLED BEHIND NECK. LIGHTS DIMMED. DAUGHTER CARLOS ALBERTO UPDATED ON PROGRESS.
[2024-08-18] MEDS ORDERED: GABAPENTIN 300 MG CAP PO SCH (15:00)
[2024-08-18 16:50] VITALS: BP 146/60
--- NOTE | 2024-08-18 18:40 | NUR ---
NEURO- ALERT AND ORIENTED X 4, MOVES ALL EXTREMITIES, LIDOCAINE PATCH PLACED ON KNEE, ACETAMINOPHEN FOR HEADACHE X 2, PERRL CARDIAC- NSR, NORMOTENSIVE, AFEBRILE, 2+ BILATERAL LOWER EDEMA RESP- RA, CPAP AT NIGHT, BREATH SOUNDS CLEAR/DIM, ABLE TO COUGH AND DEEP BREATH TO PROTECT AIRWAY GI/- PUREWICK, URINE CONCENTRATED AND CLOUDY, BOWEL MOVEMENT X1, PASSING FLATUS, PUREWICK CHANGED X2 INT- NYSTATIN PLACED UNDER BREAST FOLDS AND PANNUS, NON BLANCHABLE REDNESS ON COCCYX LR AT 100
--- NOTE | 2024-08-18 19:45 | NUR ---
REPORT RECEIVED FROM DIEGO SMITH. PT RESTING IN BED WITH EYES CLOSED, RESP EVEN AND UNLABORED, HR 70'S SINUS RHYTHM.
--- NOTE | 2024-08-18 20:20 | NUR ---
IN TO DO HS VITALS AND ASSESSMENT. PT WAS SLEEPING BUT AWAKENS EASILY, DENIES PAIN, DENIES NEEDS AT THIS TIME.
[2024-08-18] MEDS ORDERED: MELATONIN 3 MG TAB PO PRN (21:00)
[2024-08-18] MEDS ORDERED: ATORVASTATIN 20 MG TAB PO SCH (21:00)
[2024-08-18] MEDS ORDERED: DAPTOmycin 500 MG/10 ML VIAL IV SCH ×2 (21:00)
[2024-08-18 22:03] VITALS: BP 118/51
[2024-08-19] VITALS (9 sets, daily range): BP systolic 114–143; BP diastolic 47–71
--- NOTE | 2024-08-19 | NUR ---
PT HAS BEEN RESTING WITH CPAP, RESP EVEN AND UNLABORED.
--- NOTE | 2024-08-19 03:15 | NUR ---
PT UP TO SIT AT EDGE OF BED, STATES SHE IS HAVING TROUBLE GETTING COMFORTABLE.
--- NOTE | 2024-08-19 05:30 | NUR ---
PT BACK TO BED, WANTING TO TRY TO SLEEP AGAIN.
[2024-08-19 05:45] LABS: BASOPHILS 1.6 % (0-2); EOSINOPHILS 2.5 % (0-6); HEMATOCRIT 29.8 % (35.0-50.0); HEMOGLOBIN 9.9 g/dL (12.0-18.0); LYMPHOCYTES 15.3 % (24-44); MCH 30.9 (27-36); MCHC 33.1 g/dl (30-36); MCV 93.3 fl (81-99); MONOCYTES 11.4 % (0-12); NEUTROPHILS 69.2 % (39-80); PLATELET COUNT 54 K/uL (140-440); RDW 14.4 (10.5-15.0)
[2024-08-19 05:56] LABS: ANION GAP 10.7 (7-21); BUN/CREATININE RATIO 27.42 (6.0-28.6); CREATININE, SERUM 1.75 mg/dL (0.55-1.02); MAGNESIUM 1.9 mg/dL (1.8-2.4); POTASSIUM 3.7 mmol/L (3.5-5.1)
[2024-08-19 06:06] LABS: CALCIUM 8.1 mg/dL (8.5-10.1)
--- NOTE | 2024-08-19 06:58 | NUR ---
DR BHATIA CALLED AND NOTIFIED OF POSITIVE BLOOD CULTURES, NO NEW ORDERS AT THIS TIME.
[2024-08-19] MEDS ORDERED: LEVOTHYROXINE SODIUM 125 MCG TAB PO SCH (07:00)
--- NOTE | 2024-08-19 07:42 | NUR ---
SBAR REPORT RECEIVED FROM LUIS BHATT. ALL EVENTS OF THE PREVIOUS SHIFT WERE DISCUSSED AND QUESTIONS ANSWERED. MIUGEL IS IN PLEASANT SPIRITS THIS AM. SHE ENDORSES LEFT KNEE AND LEFT HIP PAIN 11/24. CHRONIC HEADACHE PAIN 11/24. PRN ACETAMINOPHEN WILL BE GIVEN WITH MORNING BREAKFAST. NEUR0- ALERT AND ORIENTED X4, MOVES ALL EXTREMITIES,L PERRL, FOLLOWS COMMANDS, CHRONIC NEUROPATHY IN FEET CARDIAC- 97.8, PERRL, NORMOTENSIVE, EDEMA 1+ BILATERAL UPPER 2+ LOWER EXTREMITIES RESP= RA, BREATH SOUNDS CLEAR/DIM, SPO2 WDL GI/- PUREWICK ASSESSED AND PATENT, ÓSCAR CARE PERFORMED, PASSING FLATUS, LAST BM 08/18 INT- NO CHANGES NURSING PLAN- MAINTAIN COMFORT AND PROMOTE REST
[2024-08-19] MEDS ORDERED: GABAPENTIN300 MG PO (10:07)
--- NOTE | 2024-08-19 11:08 | NUR ---
MED REC COMPLETE
--- NOTE | 2024-08-19 11:23 | NUR ---
MIGUEL WILL BE TRANSFERRED TO ROOM 112 ON THE MEDICAL/SURGICAL FLOOR. NEURO- ALERT AND ORIENTED X 4, MOVES ALL EXTREMITIES, PAIN 3/10 LEFT LOWER EXTREMITY AND CHRONIC HEADACHE, PERRL, ABLE TO EXPRESS ALL NEEDS AND DESIRES RESP- RA, BREATH SOUNDS CLEAR/DIM, HOME CPAP MACHINE AT BEDSIDE CARDIAC- AFEBRILE, 2+EDEMA BILATERAL LOWER EXTREMITIES, 1+EDEMA BILATERAL UPPER EXTREMITIES, 134/63 (84) GI/-PUREWICK, NORMOACTIVE BOWEL TONES
--- NOTE | 2024-08-19 11:51 | NUR ---
REPORT RECEIVED CHART REVIEWED PT MOVED TO MED-SURG. NEEDED ITEMS IN REACH PT ORIENTED TO ROOM AND ROUTINE DENIES NEEDS AT THIS TIME
--- NOTE | 2024-08-19 12:22 | NUR ---
PT SITTING UP IN BED WITH NOON MEAL AGREES SHE HAS EVERYTHING SHE NEEDS. CALL LIGHT IN LAP
--- NOTE | 2024-08-19 13:52 | NUR ---
PT RESTING EYES CLOSED
--- NOTE | 2024-08-19 13:57 | NUR ---
PATIENT RESTING IN BED WITH EYES CLOSED. ALLOWED TO REST AT THIS TIME.
--- NOTE | 2024-08-19 14:41 | NUR ---
PT ENCOURAGED TO CHASNGE POSITIONS TOLERATED. RESTING IN BED NOW WAITING FOR EXPECTED VISITORS. AGREES SHE HAS ALL NEEDED ITEMS
--- NOTE | 2024-08-19 15:01 | NUR ---
PATIENT IN CHAIR AT THIS TIME. COMMERCIAL CENSUS TAKER ASSISTED PATIENT TO BATHROOM AND THEN BACK TO HER CHAIR. COMMERCIAL CENSUS TAKER CHARTED VITALS AND I&O'S. CALL LIGHT WITHIN REACH, NO FURTHER NEEDS AT THIS TIME.
--- NOTE | 2024-08-19 15:05 | NUR ---
PATIENT IN BED AT THIS TIME. GARMENT ALTERATION EXAMINER CHARTED VITALS AND I&O'S. CALL LIGHT WITHIN REACH, NO FURTHER NEEDS AT THIS TIME.
--- NOTE | 2024-08-19 16:58 | NUR ---
PATIENT IN BED AT THIS TIME. DROP WIRE HANGER CHARTED BLOOD SUGAR AND NOTIFIED RN. CALL LIGHT WITHIN REACH, NO FURTHER NEEDS AT THIS TIME.
--- NOTE | 2024-08-19 17:31 | NUR ---
PT SITTING UPRIGHT IN BED EATING EVENING MEAL DENIES NEEDS OF
--- NOTE | 2024-08-19 18:24 | NUR ---
ASSISTED PT WITH PERSONAL CARES, PURWIK CHANGED, ÓSCAR CARE, YEAST POWDER APPLIED. PT DENIES OTHER NEEDS. SL'D PER ORDERS. REPOSITIONED AND TUCKED IN FOR BED
--- NOTE | 2024-08-19 19:15 | NUR ---
RECIEVED REPORT FROM SEBASTIEN RN. PATIENT AWAKE IN BED ON PHONE. PATIENT DENIES NEEDS AT THIS TIME. CALL LIGHT IN REACH.
[2024-08-19] MEDS ORDERED: OXYCODONE HCL 5 MG TAB PO PRN (20:45)
--- NOTE | 2024-08-19 20:58 | NUR ---
PROVIDER NOTIFIED VIA PHONE OF PATIENT'S NEW ONSET RUQ PAIN RADIATING TO HER BACK. PROVIDER GAVE A TELEPHONE ORDER FOR 5MG OXYCODONE Q6 PRN FOR PAIN, VERIFIED BY REPEAT BACK. ORDER ENTERED.
--- NOTE | 2024-08-19 20:58 | NUR ---
IN ROOM TO ADMINISTER MEDICATIONS, SEE E-MAR. PATIENT C/O 06/26 PAIN IN RUQ RADIATING AROUND TO THE BACK. VITALS ASSESSED AND ARE WNL. PATIENT STATES PAIN IS NEW AND DESCRIBES IT AN "ACHE THAT WARREN WHEN I TOUCH IT". PATIENT NAUSEATED, PRN NAUSEA MEDICATION ADMINISTERED, SEE E-MAR. PATIENT PROVIDED WITH EMESIS BAG. PATIENT DENIES ADDITIONAL NEEDS AT THIS TIME. CALL LIGHT IN REACH.
--- NOTE | 2024-08-19 21:00 | NUR ---
IN ROOM TO ADMINISTER PRN PAIN MEDICATION, SEE E-MAR. PATIENT TOLERATED WELL. ASSESSMENT COMPLETED. PATIENT REQUESTS TO SIT ON EDGE OF THE BED. PATIENT 1PA TO EDGE OF THE BED. PATIENT DENIES ADDITIONAL NEEDS AT THIS TIME. CALL LIGHT IN REACH.
--- NOTE | 2024-08-19 22:22 | NUR ---
IN ROOM TO REASSESS PATIENT'S PAIN. PATIENT RATING PAIN 4/10. PATIENT REQUESTS PRN TYLENOL. PRN TYLENOL ADMINISTERED, SEE E-MAR. PATIENT 1PA BACK TO BED. WARM BLANKET PROVIDED. PUREWICK IN PLACE. PATIENT DENIES ADDITIONAL NEEDS AT THIS TIME. CALL LIGHT IN REACH.
[2024-08-20] VITALS (12 sets, daily range): BP systolic 113–176; BP diastolic 51–99
--- NOTE | 2024-08-20 00:05 | NUR ---
IN ROOM TO ROUND ON PATIENT. PATIENT RESTING ON BACK WITH EYES CLOSED. CPAP IN [place]. RESPIRATIONS EVEN AND UNLABORED. NO NEEDS IDENTIFIED AT THIS TIME. CALL LIGHT IN REACH.
--- NOTE | 2024-08-20 01:44 | NUR ---
IN ROOM TO ROUND ON PATIENT. PATIENT RESTING IN BED ON BACK WITH EYES CLOSED. CPAP IN PLACE. RESPIRATIONS EVEN AND UNLABORED. CALL LIGHT IN REACH.
--- NOTE | 2024-08-20 03:43 | NUR ---
IN ROOM TO ROUND ON PATIENT. PATIENT AWAKE IN BED. PATIENT REQUESTS BLOOD SUGAR CHECK. BLOOD SUGAR CHECK COMPLETED AND NO HYPOGLYCEMIA PRESENT. PATIENT IV DRESSING NOT INTACT. IV DC'd PER TIE BUCKER. INTERDRY PLACED UNDER PATIENT'S BREASTS TO ABSORB MOISTURE IN PLACE OF PAPER TOWELS. PATIENT BREIF SOILED. ÓSCAR CARE PROVIDED. BRIEF REPLACED. PUREWICK REPLACED. PATIENT REQUESTS ICE WATER. ICE WATER REFILLED. PATIENT DENIES ADDITIONAL NEEDS AT THIS TIME. CALL LIGHT IN REACH.
--- NOTE | 2024-08-20 05:36 | NUR ---
IN ROOM TO ADMINISTER MEDICATION, SEE E-MAR. PATIENT AWAKE IN BED. PATIENT VITALS ASSESSED. PATIENT DENIES ADDITIONAL NEEDS AT THIS TIME. CALL LIGHT IN REACH.
[2024-08-20 05:44] LABS: BASOPHILS 0.4 % (0-2); EOSINOPHILS 4.1 % (0-6); HEMATOCRIT 29.5 % (35.0-50.0); HEMOGLOBIN 9.9 g/dL (12.0-18.0); LYMPHOCYTES 19.7 % (24-44); MCH 31.5 (27-36); MCHC 33.7 g/dl (30-36); MCV 93.6 fl (81-99); NEUTROPHILS 56.8 % (39-80); PLATELET COUNT 59 K/uL (140-440); RBC 3.15 M/ul (4.3-5.7); RDW 14.5 (10.5-15.0)
[2024-08-20 06:01] LABS: ANION GAP 10.3 (7-21); BUN/CREATININE RATIO 29.77 (6.0-28.6); CREATININE, SERUM 1.78 mg/dL (0.55-1.02); POTASSIUM 4.3 mmol/L (3.5-5.1)
--- NOTE | 2024-08-20 07:23 | NUR ---
REPORT RECEIVED FROM LUIS JERNIGAN AND LUIS MORELOS. PT RESTING IN BED, RESPONDS WHEN ADDRESSED AND REPORTS NO NEEDS AT THIS TIME. CALL LIGHT IN REACH.
--- NOTE | 2024-08-20 08:25 | NUR ---
PATIENT IN BED AT THIS TIME. YARN INSPECTOR WENT INTO PATIENTS ROOM FOR HOURLY ROUNDS. YARN INSPECTOR CHARTED PATIENTS BLOOD SUGAR. CALL LIGHT WITHIN REACH, NO FURTHER NEEDS AT THIS TIME.
--- NOTE | 2024-08-20 08:41 | NUR ---
ROUNDING ON PT, PT SITTING UP IN BED EATING BREAKFAST, STATES NO NEEDS AT THIS TIME. CALL LIGHT IN REACH.
--- NOTE | 2024-08-20 09:40 | NUR ---
MEDICATIONS ADMINISTERED, SEE MAR. PHYSICAL THERAPY ARRIVES TO WORK WITH PT. PT HAS NO OTHER NEEDS AT THIS TIME, PHYSICAL THERAPY REMAINS IN ROOM.
[2024-08-20] MEDS ORDERED: LIDOCAINE HCL 4% 1 EACH PATCH TD SCH ×2 (09:41→12:09)
--- NOTE | 2024-08-20 11:00 | NUR ---
CALL LIGHT ANSWERED. PT NEEDED TO USE BATHROOM. SOCIAL MEDIA DEVELOPER 1PA FROM CHAIR WITH FWW TO BATHROOM. PT VOIDED AND COMPLAINING OF BACK PAIN AND A SORE SPOT ON HER BOTTOM. PRIMARY RN NOTIFED AND IN ROOM. BARRIER CREAM APPLIED TO ELIANA SPOT. SOCIAL MEDIA DEVELOPER THEN ASSISTED PT TO BED WITH FWW. PT STATES NO FURTHER NEEDS AT THIS TIME. OUTPUT NOTED. CALL LIGHT WITHIN REACH OF PT.
--- NOTE | 2024-08-20 11:15 | NUR ---
PATIENT RESTING IN RECLINER WITH EYES CLOSED. ALLOWED TO REST.
--- NOTE | 2024-08-20 11:23 | NUR ---
PT UP IN RECLINER WITH BLE ELEVATED, RR EVEN AND UNLABORED, CALL LIGHT IN REACH.
--- NOTE | 2024-08-20 11:57 | NUR ---
PATIENT IN CHAIR AT THIS TIME. MEDICAID COLLECTION SPECIALIST ASSISTED PATIENT TO BATHROOM AND THEN BACK TO HER CHAIR. PATIENT ASKED FOR PAIN MEDICATIONS, RN HAS BEEN NOTIFIED. CALL LIGHT WITHIN REACH, NO FURTHER NEEDS AT THIS TIME.
--- NOTE | 2024-08-20 12:15 | NUR ---
ASSESSMENT COMPLETE. PT UP IN RECLINER REPORTING MID-BACK PAIN 05/27. PRN PAIN MEDICATION SUPPLIED, HEAT PACK APPLIED. MD IN TO ASSESS PT AT THIS TIME. MD ANSWERS ALL PT QUESTIONS AND STATES HE WILL UPDATE PLAN OF CARE AT THIS TIME. PT LUNG SOUNDS CLEAR THROUGHOUT, HEART SOUNDS HEARD WITH MURMUR NOTED, PT HAS HX OF CHF AND A MURMUR, REGULAR RYTHYM AT THIS TIME. BOWEL TONES ACTIVE IN ALL FOUR QUADRANTS, NO NAUSEA OR TENDERNESS TO PALPATION. PT PULSES 2+ IN BUE, 1+ IN BLE. PT REPORTS CHRONIC NUMBNESS/TINGLING IN BLE. PT IV FLUSHES WNL. PT REMAINS IN RECLINER, LUNCH ARRIVES. PT ELEVATES BLE IN RECLINER, REPOSITIONS HERSELF TO SIT UP HIGHER. NO OTHER NEEDS AT THIS TIME, CALL LIGHT IN REACH.
--- NOTE | 2024-08-20 14:13 | NUR ---
PT UP IN RECLINER ON THE PHONE. NO NEEDS AT THIS TIME. CALL LIGHT IN REACH.
--- NOTE | 2024-08-20 14:24 | NUR ---
PATIENT IN BED AT THIS TIME. RN CHARTED VITALS AND I&O'S. CALL LIGHT WITHIN REACH, NO FURTHER NEEDS AT THIS TIME.
--- NOTE | 2024-08-20 14:44 | NUR ---
PATIENT IN CHAIR AT THIS TIME. INSURANCE UNDERWRITER SALES ASSISTED PATIENT IN GETTING FROM CHAIR TO BATHROOM AND THEN BACK TO THE CHAIR. CALL LIGHT WITHIN REACH, NO FURTHER NEEDS AT THIS TIME.
--- NOTE | 2024-08-20 15:22 | NUR ---
PATIENT IN CHAIR AT THIS TIME. URGENT CARE NURSE PRACTITIONER WENT INTO PATIENTS ROOM AT THIS TIME FOR HOURLY ROUNDS. CALL LIGHT WITHIN REACH, NO FURTHER NEEDS AT THIS TIME.
--- NOTE | 2024-08-20 16:17 | NUR ---
SECOND ASSESSMENT COMPLETE. MEDICATION ADMINISTERED, SEE MAR. PT IV FLUSHES WNL. PT REPORTS PAIN IS A 1/10 IN HER MID-BACK AND STATES "MY PAIN IS GREAT!" NO INTERVENTIONS AT THIS TIME. BOWEL TONES ACTIVE IN ALL FOUR QUADRANTS, NO TENDERNESS TO PALPATION, PT REPORTS NO NAUSEA OR ABDOMINAL PAIN. PT REMAINS UP IN RECLINER WATCHING TELEVISION, NO FURTHER NEEDS AT THIS TIME, CALL LIGHT IN REACH.
--- NOTE | 2024-08-20 19:05 | NUR ---
REPORT RECEIVED FROM ERMELINDA SMITH. pt SITTING IN THE CHAIR. BOARD UPDATED. pt DENIES ANY OTHER NEEDS AT THIS TIME. CALL LIGHT WITHIN REACH.
--- NOTE | 2024-08-20 19:10 | NUR ---
PATIENT IN BED AT THIS TIME. ARMATURE INSPECTOR CHARTED VITALS AND I&O'S. CALL LIGHT WITHIN REACH, NO FURTHER NEEDS AT THIS TIME.
--- NOTE | 2024-08-20 20:20 | NUR ---
ASSESSMENT AND VITAL SIGNS DONE. pt SITTING IN THE CHAIR. BG CHECKED WITH A RESULTS OF 180. SS INSULIN ADMINISTERED. SCHEDULED MEDS ADMINISTERED. pt DENIES ANY OTHER NEEDS AT THIS TIME. CALL LIGHT WITHIN REACH.
[2024-08-20] MEDS ORDERED: LIDOCAINE PATCH REMOVAL 1 EA TD SCH (21:00)
--- NOTE | 2024-08-20 22:28 | NUR ---
pt RESTING IN THE CHAIR WITH EYES CLOSED. RR EVEN AND UNLABORED. CALL LIGHT WITHIN REACH.
--- NOTE | 2024-08-21 01:25 | NUR ---
pt RESTING IN THE BED WITH EYES CLOSED. RR EVEN AND UNLABORED. CALL LIGHT WITHIN REACH. CPAP ON.
--- NOTE | 2024-08-21 03:22 | NUR ---
pt CALLED TO GO TO THE BR. pt SBA WITH THE FWW TO THE BR. pt C/O 03/26 PAIN. PRN PAIN MEDS ADMINISTERED. pt DENIES ANY OTHER NEEDS AT THIS TIME. CALL LIGHT WITHIN REACH. WATER REFRESHED. pt BACK TO BED.
[2024-08-21 05:47] VITALS: BP 139/64
[2024-08-21 05:49] VITALS: BP 139/64
[2024-08-21 05:52] LABS: BASOPHILS 0.3 % (0-2); EOSINOPHILS 4.9 % (0-6); HEMATOCRIT 29.2 % (35.0-50.0); LYMPHOCYTES 18.7 % (24-44); MCH 31.7 (27-36); MCHC 34.1 g/dl (30-36); MCV 92.7 fl (81-99); NEUTROPHILS 61.1 % (39-80); PLATELET COUNT 61 K/uL (140-440); RBC 3.15 M/ul (4.3-5.7); RDW 14.7 (10.5-15.0)
[2024-08-21 06:08] LABS: ANION GAP 7.9 (7-21); BUN/CREATININE RATIO 31.95 (6.0-28.6); CALCIUM 7.8 mg/dL (8.5-10.1); CREATININE, SERUM 1.69 mg/dL (0.55-1.02); MAGNESIUM 2.3 mg/dL (1.8-2.4); POTASSIUM 3.9 mmol/L (3.5-5.1)
--- NOTE | 2024-08-21 06:12 | NUR ---
pt UP TO THE BR. HYDROTEL OPERATOR IN THE WITH THIS RN TO DO VS. pt BACK TO BED. SCHEDULED MEDS ADMINISTERED. pt DENIES ANY OTHER NEEDS AT THIS TIME. CALL LIGHT WITHIN REACH.
--- NOTE | 2024-08-21 07:11 | NUR ---
REPORT RECEIVED FROM LUIS PALMER. PT RESTING IN BED WITH HOB ELEVATED, VISITOR PRESENT IN THE ROOM AT THIS TIME. PT STATES NO NEEDS, CALL LIGHT IN REACH.
--- NOTE | 2024-08-21 08:57 | NUR ---
AFTER I DID HER BLODD SUGAR CHECK THIS MORNING PATIENT WASHED HER FACE AND AFTER BREAKFAST SHE IS GOING TO BRUSH HER TEETH.
--- NOTE | 2024-08-21 09:29 | NUR ---
MEDICATIONS ADMINISTERED, SEE MAR. ASSESSMENT COMPLETE. PT LUNG SOUNDS CLEAR IN BUL, CLEAR IN LLL, SCANT CRACKLES TO RLL. PT EDUCATED ON IS USE AND RETURNS DEMONSTRATION ON HOW TO USE. PT ALSO EDUCATED ON AMBULATION AND MOVEMENT TO ASSIST IN DEEP BREATHING. PT VERBALIZES UNDERSTANDING. HEART SOUNDS HEARD WNL, MURMUR NOTED. BOWEL TONES ACTIVE IN ALL QUADRANTS, MILD TENDERNESS TO PALPATION, NO NAUSEA REPORTED. PULSES 2+ IN BUE, 1+ IN BLE, PT REPORTS CHRONIC NUMBNESS/TINGLING IN BLE - PREVIOUSLY IN UPPER EXTREMETIES, BUT REPORTING HER LAMINECTOMY ASSISTED IN THIS. PT HAS GENERALIZED EDEMA TO BLE, RUDDINESS NOTED, NO WARMTH NOTED. PANNUS FOLD AND BILAT BREAST FOLDS CLEANED, DRIED, AND SCHEDULED ANTIFUNGAL POWDER APPLIED. PT HAS VISITOR, GRANDDAUGHTER, PRESENT IN ROOM THROUGHOUT. PT STATES HER PAIN IS "OKAY" AND RATES IT A 5/10 IN HER MID-BACK, NO INTERVENTION REQUESTED AT THIS TIME. IV TO R FOREARM FLUSHES WNL. STATES NO OTHER NEEDS AT THIS TIME, CALL LIGHT IN REACH.
[2024-08-21 09:30] VITALS: BP 150/66
[2024-08-21 10:08] VITALS: BP 150/66
--- NOTE | 2024-08-21 10:39 | NUR ---
PT RESTING WITH HOB ELEVATED, VISITOR AT BEDSIDE. PT REQUESTS FRESH ICE WATER, RETRIEVED. NO OTHER NEEDS AT THIS TIME, CALL LIGHT IN REACH.
[2024-08-21] MEDS ORDERED: LEVOFLOXACIN750 MG PO (11:13)
[2024-08-21] MEDS ORDERED: OXYCODONE HCL5 MG PO (11:27)
--- NOTE | 2024-08-21 12:33 | NUR ---
WHEN I WENT IN TO DO HER BLOOD SUGAR CHECK PATIENT WAS ALREADY UP IN CHAIR.
[2024-08-21 13:12] VITALS: BP 148/69
--- NOTE | 2024-08-21 13:24 | NUR ---
PT UP IN RECLINER CHATTING ON PHONE, PT VISITOR RESTING ON COUCH BESIDE HER. NO NEEDS AT THIS TIME, CALL LIGHT IN REACH.
--- NOTE | 2024-08-21 14:20 | NUR ---
VISITED DURING SPIRITUAL CARE ROUNDS. PT EXPRESSED ANTICIPATION OF IMMINENT DISCHARGE. ESOL TEACHER ASSISTANT PROVIDED SUPPORTIVE PRESENCE, HOSPITALITY, PRAYER.
--- NOTE | 2024-08-21 15:19 | NUR ---
DISCHARGE EDUCATION COMPLETE, ALL QUESTIONS ANSWERED. PT HAS DISCHARGE INSTRUCTIONS AND EDUCATIONS WITH HER PERSONAL BELONGINGS. VS OBTAINED. PT IS CURRENTLY GETTING DRESSED IN ANTICIPATION OF DISCHARGE.
== END 2024-08-21 15:45 | disposition home or self-care (01) | DRG 871 ==
LOC: ED 22:05 → CCU 22:07 → MS 08-18 11:37 → CCU 08-18 11:38 → MS 08-19 11:45
PROVIDERS: Internal Medicine; Student in an Organized Health Care Education/Training Program; ADMIT Student in an Organized Health Care Education/Training Program; ATTEND Student in an Organized Health Care Education/Training Program
DX: A40.8 Other streptococcal sepsis (principal); G93.41 Metabolic encephalopathy; I13.0 Hypertensive heart and chronic kidney disease with heart failure and stage 1 through stage 4 chronic kidney disease, or unspecified chronic kidney disease; L03.311 Cellulitis of abdominal wall; N39.0 Urinary tract infection, site not specified; N17.9 Acute kidney failure, unspecified; E87.20 Acidosis, unspecified; Z68.43 Body mass index [BMI] 50.0-59.9, adult; Z66 Do not resuscitate; E78.5 Hyperlipidemia, unspecified; I50.9 Heart failure, unspecified; G47.30 Sleep apnea, unspecified; E66.01 Morbid (severe) obesity due to excess calories; N18.9 Chronic kidney disease, unspecified; R32 Unspecified urinary incontinence; E11.40 Type 2 diabetes mellitus with diabetic neuropathy, unspecified; R79.89 Other specified abnormal findings of blood chemistry; D69.6 Thrombocytopenia, unspecified; E03.9 Hypothyroidism, unspecified; I87.8 Other specified disorders of veins; F32.9 Major depressive disorder, single episode, unspecified; M81.0 Age-related osteoporosis without current pathological fracture; E11.22 Type 2 diabetes mellitus with diabetic chronic kidney disease; Z90.710 Acquired absence of both cervix and uterus; Z87.19 Personal history of other diseases of the digestive system; Z87.59 Personal history of other complications of pregnancy, childbirth and the puerperium; Z88.7 Allergy status to serum and vaccine; Z79.4 Long term (current) use of insulin; Z79.890 Hormone replacement therapy; Z79.899 Other long term (current) drug therapy; Z98.890 Other specified postprocedural states; Z79.82 Long term (current) use of aspirin; Z86.69 Personal history of other diseases of the nervous system and sense organs
CPT/HCPCS: 36415; 51701; 70450; 71045; 72080; 74176; 80048; 80053; 81001; 82140; 82553; 82607; 83036; 83605; 83735; 83880; 84443; 84484; 85025; 85060; 85610; 85730; 87040; 87077; 87088; 87186; 87502; 93005; 93010; 94760; 97161; 99285-25; A9270; G0378; J0696; J0878; J1644; J1815; J2405; J7121; U0002

== ENCOUNTER 2024-08-26 18:36 | Emergency (ER) | payer MEDICARE, OTHER ==
[~2024-08-26] VITALS: Ht 157.5 cm; Wt 132.0 kg
[~2024-08-26 18:36] MED LIST changes: +GABAPENTIN300 MG PO; +LEVOFLOXACIN750 MG PO; +LO-DOSE ASPIRIN81 MG PO; +OXYCODONE HCL5 MG PO; +TAMSULOSIN HCL0.4 MG PO
--- OUTSIDE RECORDS SUMMARY | 2024-08-26 18:42 | XMS ---
PreManage Notification: MIGUEL ARCHER Security Management Engineer Events No recent Security Events currently on file CRITERIA MET - [facility] - 2 Visits in 30 Days CARE PROVIDERS SHANNAN NEWMAN [facility] Current R. PHONE: [phone] ODALIS SALASEast [facility] Current PHONE: Unknown Zabrina has no Care Guidelines for this patient. Rafia VISIT COUNT (12 MO.) [address] [place] [address] TOTAL 4 NOTE: Visits indicate total known visits. ED/UCC VISIT TRACKING (12 MO.) 08/26/2024 18:36 [facility] TYPE: Emergency COMPLAINT: - REEVALUATION 08/17/2024 22:06 [facility] TYPE: Emergency COMPLAINT: - HYPERTENSION 12/24/2023 09:52 [facility] TYPE: Emergency DIAGNOSES: - Acute kidney failure, unspecified - Anemia, unspecified - Chronic diastolic (congestive) heart failure - Edema, unspecified - Essential (primary) hypertension - Fall on same level, unspecified, initial encounter - Other disorders of plasma-protein metabolism, not elsewhere classified - Unspecified injury of head, initial encounter - Fall 12/12/2023 11:24 [facility] TYPE: Emergency COMPLAINT: - R ARM WOUND DIAGNOSES: - Disorder of thyroid, unspecified - Heart failure, unspecified - Hyperlipidemia, unspecified - Hypertensive heart disease with heart failure - Laceration without foreign body of right elbow, initial encounter - Laceration without foreign body of right forearm, initial encounter - Laceration without foreign body of right forearm, initial encounter - long-term (current) use of insulin - Other buttermaker continuous churn (current) drug therapy - Sleep apnea, unspecified - Striking against or struck by other objects, initial encounter - Type 2 diabetes mellitus with diabetic neuropathy, unspecified - Type 2 diabetes mellitus with unspecified diabetic retinopathy with macular edema INPATIENT VISIT TRACKING (12 MO.) 08/18/2024 11:37 [facility] TYPE: Medical Surgical COMPLAINT: - CELLULITIS/SEPSIS DIAGNOSES: - Acidosis, unspecified - Acidosis, unspecified - Acquired absence of both cervix and uterus - Acquired absence of both cervix and uterus - Acute kidney failure, unspecified - Acute kidney failure, unspecified - Age-related osteoporosis without current pathological fracture - Age-related osteoporosis without current pathological fracture - Allergy status to serum and vaccine - Allergy status to serum and vaccine - Altered mental status, unspecified - Body mass index [BMI] 50.0-59.9, adult - Body mass index [BMI] 50.0-59.9, adult - Cellulitis of abdominal wall - Cellulitis of abdominal wall - Chronic kidney disease, unspecified - Chronic kidney disease, unspecified - Do not resuscitate - Do not resuscitate - Heart failure, unspecified - Heart failure, unspecified - Hormone replacement therapy - Hormone replacement therapy - Hyperlipidemia, unspecified - Hyperlipidemia, unspecified - Hypertensive heart and chronic kidney disease with heart failure and stage 1 through stage 4 chronic kidney disease, or unspecified chronic kidney disease - Hypertensive heart and chronic kidney disease with heart failure and stage 1 through stage 4 chronic kidney disease, or unspecified chronic kidney disease - Hypothyroidism, unspecified - Hypothyroidism, unspecified - termite control technician (current) use of aspirin - long-term (current) use of aspirin - termite control technician (current) use of insulin - termite control technician (current) use of insulin - Major depressive disorder, single episode, unspecified - Major depressive disorder, single episode, unspecified - Metabolic encephalopathy - Metabolic encephalopathy - Morbid (severe) obesity due to excess calories - Morbid (severe) obesity due to excess calories - Other buttermaker continuous churn (current) drug therapy - Other group home (current) drug therapy - Other specified abnormal findings of blood chemistry - Other specified abnormal findings of blood chemistry - Other specified disorders of veins - Other specified disorders of veins - Other specified postprocedural states - Other specified postprocedural states - Other streptococcal sepsis - Other streptococcal sepsis - Personal history of other complications of , childbirth and the puerperium - Personal history of other complications of , childbirth and the puerperium - Personal history of other diseases of the digestive system - Personal history of other diseases of the digestive system - Personal history of other diseases of the nervous system and sense organs - Personal history of other diseases of the nervous system and sense organs - Sleep apnea, unspecified - Sleep apnea, unspecified - Thrombocytopenia, unspecified - Thrombocytopenia, unspecified - Type 2 diabetes mellitus with diabetic chronic kidney disease - Type 2 diabetes mellitus with diabetic chronic kidney disease - Type 2 diabetes mellitus with diabetic neuropathy, unspecified - Type 2 diabetes mellitus with diabetic neuropathy, unspecified - Unspecified urinary incontinence - Unspecified urinary incontinence - Urinary tract infection, site not specified - Urinary tract infection, site not specified 06/23/2024 06:15 [facility] TYPE: Internal Medicine DIAGNOSES: - Acute on chronic diastolic (congestive) heart failure - Body mass index [BMI] 45.0-49.9, adult - Chronic kidney disease, stage 3 unspecified - Diabetes mellitus due to underlying condition with diabetic nephropathy - Morbid (severe) obesity with alveolar hypoventilation - Nonrheumatic aortic (valve) stenosis - Presence of prosthetic heart valve - Type 2 diabetes mellitus with diabetic chronic kidney disease - Obesity, class 3 [email or web address]
[2024-08-26] MEDS ORDERED: FLUCONAZOLE150 MG PO (19:22)
[2024-08-26] MEDS ORDERED: POTASSIUM CHLOR8 ME1 PO (19:22)
[2024-08-26 19:44] LABS: BASOPHILS 0.9 % (0-2); EOSINOPHILS 2.3 % (0-6); HEMATOCRIT 24.9 % (35.0-50.0); HEMOGLOBIN 8.4 g/dL (12.0-18.0); LYMPHOCYTES 19.3 % (24-44); MCH 31.7 (27-36); MCHC 33.6 g/dl (30-36); MCV 94.2 fl (81-99); MONOCYTES 13.1 % (0-12); NEUTROPHILS 64.4 % (39-80); PLATELET COUNT 124 K/uL (140-440); RBC 2.64 M/ul (4.3-5.7); RDW 15.3 (10.5-15.0)
[2024-08-26] MEDS ORDERED: FLUCONAZOLE 150 MG TAB PO ONE (20:00)
[2024-08-26 20:06] LABS: ALBUMIN 2.3 g/dL (3.4-5.0); ALBUMIN/GLOBULIN RATIO 0.46 (1.1-2.4); ANION GAP 9.1 (7-21); BILIRUBIN, TOTAL 1.1 ng/dL (0.2-1.0); BUN/CREATININE RATIO 16.75 (6.0-28.6); CALCIUM 8.6 mg/dL (8.5-10.1); CREATININE, SERUM 1.79 mg/dL (0.55-1.02); POTASSIUM 4.1 mmol/L (3.5-5.1); PROTEIN, TOTAL 7.3 g/dL (6.4-8.2)
[2024-08-26 20:28] LABS: BILIRUBIN, URINE NEGATIVE (negative); BLOOD/HGB, URINE NEGATIVE (Negative); KETONE, URINE NEGATIVE (Negative); LEUK ESTERASE, URINE NEGATIVE (negative); NITRITE, URINE NEGATIVE (negative)
[2024-08-26] MEDS ORDERED: DIFLUCAN200 MG PO (20:57)
[2024-08-26] MEDS ORDERED: CEFDINIR300 MG PO (20:57)
[2024-08-26 21:15] VITALS: BP 162/64
== END 2024-08-26 21:15 | disposition home or self-care (01) ==
LOC: ED 18:36
PROVIDERS: Family Medicine
DX: L03.311 Cellulitis of abdominal wall (principal); B37.89 Other sites of candidiasis; E78.5 Hyperlipidemia, unspecified; I11.0 Hypertensive heart disease with heart failure; I50.9 Heart failure, unspecified; E11.42 Type 2 diabetes mellitus with diabetic polyneuropathy; G47.30 Sleep apnea, unspecified; K74.60 Unspecified cirrhosis of liver; Z88.7 Allergy status to serum and vaccine; Z79.890 Hormone replacement therapy; Z79.4 Long term (current) use of insulin; Z79.82 Long term (current) use of aspirin; Z79.899 Other long term (current) drug therapy
CPT/HCPCS: 36415; 80053; 81003; 83605; 83735; 85025; 99283